=== PATIENT | male | born 1970 | race Caucasian/White ===

== ENCOUNTER 2016-08-11 14:19 | Emergency (ER) | payer OTHER ==
[~2016-08-11] VITALS: Ht 177.8 cm; Wt 65.8 kg
[~2016-08-11 14:19] MED LIST: LOSARTAN POTASS50 M1 PO; MOBIC15 MG PO; NAPROSYN500 M1 PO; PHENYTOIN SODI100 MG PO; TOPICORT60 G3 TOP
[2016-08-11 14:29] VITALS: BP 98/62
[2016-08-11] MEDS ORDERED: BACLOFEN10 M1 PO (15:08)
[2016-08-11] MEDS ORDERED: VICODIN 5-3001 EACH PO (15:08)
--- NOTE | 2016-08-11 15:10 | ED UPPER/LOWER EXTREMITY COMPL ---
History of Present Illness General Chief Complaint: Lower Extremity Problems Stated Complaint: LEFT LEG PAIN Source: patient, old records Exam Limitations: no limitations Vital Signs & Intake/Output Vital Signs & Intake/Output Vital Signs Date Time Temp Pulse Resp B/P Pulse O2 O2 Flow FiO2 Ox Delivery Rate 08/11 1429 98.8 108 20 98/62 96 Room Air Allergies Coded Allergies: aspirin (DIZZINESS 01/27/16) Uncoded Allergies: POLLEN (11/07/13) Reconcile Medications Baclofen 10 MG TABLET 1-2 TAB PO TID PRN muscle strain Hydrocodone/Acetaminophen (Vicodin 5-300 MG Tablet) 5 MG-300 MG TABLET 1 TAB PO Q4-6 PRN severe pain Losartan Potassium 50 MG TABLET 1 TAB PO DAILY HIGH BLOOD PRESSURE (Reported) Phenytoin Sodium Extended 100 MG CAPSULE 1 CAP PO DAILY SEIZURES (Reported) Phenytoin Sodium Extended 100 MG CAPSULE 2 CAP PO QPM SEIZURES (Reported) Triage Note: PT BIBA TO ED C/O LEFT LEG PAIN AND SWELING. STATES ABOUT 5 WEEKS AGO HE HAD AN INJURY TO LEFT LEG. PT HAS BEEN HAVING PHYSICAL THERAPY, PT STATES IT IS NOT GETTING ANY BETTER. LEFT LEFT SWELLING AND BRUISING NOTED. Triage Nurses Notes Reviewed? 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 Method of Injury: fall Modifying Factors: Improves With: immobilization, pain medication, rest. Worsens With: movement. Associated Symptoms: swelling, GCS 15 since, stiffness HPI: 1 month prior to admission patient fell from 3 foot ladder sustaining left leg injuries to the muscles by MRI [id number]. He complains of continued pain swelling and ecchymosis to left leg. He was prescribed naprosyn recently causing him to have frequent loose watery stool. He denies fever chills nausea vomiting diarrhea abdominal pain chest pain shortness breath headache injury. Past History Travel History Traveled to [place] past 21 day No Medical History Any Pertinent Medical History? 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 No Review of Systems Review of Systems Constitutional: Reports: no symptoms. EENTM: Reports: no symptoms. Respiratory: Reports: no symptoms. Cardiovascular: Reports: no symptoms. Gastrointestinal/Abdominal: Reports: no symptoms. Genitourinary: Reports: no symptoms. Musculoskeletal: Reports: see HPI, muscle pain, muscle stiffness. Skin: Reports: no symptoms. Neurological/Psychological: Reports: no symptoms. Hematologic/Endocrine: Reports: no symptoms. Immunological: Reports: no symptoms. All Other Systems: Reviewed and Negative Physical Exam Physical Exam General Appearance: well developed/nourished, alert, awake, anxious, moderate distress Head: atraumatic, normal appearance Eyes: Bilateral: normal appearance, PERRL, EOMI. Ears, Nose, Throat: normal pharynx, normal ENT inspection, hearing grossly normal Neck: normal inspection, supple, full range of motion, no midline tenderness Cardiovascular/Respiratory: normal breath sounds, normal peripheral pulses, regular rate/rhythm, no respiratory distress Peripheral Pulses: 4+ carotid (R), 4+ carotid (L), 2+ femoral (R), 2+ femoral (L) Back: normal inspection Shoulder Left: normal range of motion, normal inspection Shoulder Right: normal range of motion, normal inspection Elbow Left: normal range of motion, normal inspection Elbow Right: normal range of motion, normal inspection Hand Left: normal inspection, normal range of motion Hand Right: normal inspection, normal range of motion Upper Extremity Reflexes: 2+: bicep (R), bicep (L), tricep (R), tricep (L). Leg Left: tenderness, ecchymosis, evidence of injury, soft tissue tenderness, limited range of motion Leg Right: normal range of motion, normal inspection Hip Left: normal range of motion, normal inspection Hip Right: normal range of motion, normal inspection Knee Left: normal inspection, soft tissue tenderness, limited range of motion Knee Right: normal range of motion, normal inspection Foot Left: normal inspection, normal range of motion Foot Right: normal inspection, normal range of motion Lower Extremity Reflexes: 2+: knee (R), knee (L). Neurologic/Tendon: normal sensation, normal motor functions, normal tendon functions, no evidence tendon injury Skin: intact, normal color, warm/dry Lymphatic: no anterior cervical anna Progress Differential Diagnosis: compartment syndrome, contusion Plan of Care: analgesia muscle relaxant Departure Departure Time of Disposition: 1507 Disposition: HOME OR SELF CARE Condition: Stable Clinical Impression Primary Impression: Musculoskeletal pain of left lower extremity Referrals: KESHA ROSARIO (PCP/Family) Departure Forms: Customer Survey General Discharge Information Prescriptions: Current Visit Scripts Baclofen 1-2 TAB PO TID PRN muscle strain #30 TAB Hydrocodone/Acetaminophen (Vicodin 5-300 MG Tablet) 1 TAB PO Q4-6 PRN severe pain #30 TAB
== END 2016-08-11 15:25 ==
LOC: ERH 14:19
DX: M79.605 Pain in left leg (principal)

== ENCOUNTER 2016-08-19 14:16 | Inpatient (IN) | payer OTHER ==
[~2016-08-19] VITALS: Ht 177.8 cm; Wt 66.7 kg
[~2016-08-19 14:16] MED LIST changes: +BACLOFEN10 M1 PO; +VICODIN 5-3001 EACH PO
--- NOTE | 2016-08-19 15:23 | ED GENERAL ADULT ---
See Addendum History of Present Illness General Chief Complaint: Dyspnea (COPD, CHF, Other) Stated Complaint: SOB, DIFFICULTY BREATHING Source: patient, family Exam Limitations: poor historian, physical impairment Allergies Coded Allergies: aspirin (DIZZINESS 01/27/16) Uncoded Allergies: POLLEN (11/07/13) Reconcile Medications Baclofen 10 MG TABLET 1-2 TAB PO TID PRN muscle strain Hydrocodone/Acetaminophen (Vicodin 5-300 MG Tablet) 5 MG-300 MG TABLET 1 TAB PO Q4-6 PRN severe pain Losartan Potassium 50 MG TABLET 1 TAB PO DAILY HIGH BLOOD PRESSURE (Reported) Phenytoin Sodium Extended 100 MG CAPSULE 1 CAP PO DAILY SEIZURES (Reported) Phenytoin Sodium Extended 100 MG CAPSULE 2 CAP PO QPM SEIZURES (Reported) Triage Note: PT WAS EVALUATED 07/17 IN ER AFTER A FALL , HAD XRAYS, WAS TOLD HE HAD HEMATOMA BEHIND HIS KNEE, HAS US TO RULE OUT DVT. PTS MOTHER STATES THAT PT HAS BEEN FAILING WITH HIS HEALTH, UNABLE TO WALK WITHOUT BECOMING SOB, O2 SAT 100 % ON RA, STARTED LAST FRIDAY. COMPLAINS OF HEADACHE, PAIN FROM FOOT TO GROIN, SHOOTING, PT UNABLE TO SIT STILL IN CHAIR, PT WENT TO DR ACOSTA OFFICE AND WAS TOLD TO COME TO ER, BP 62/34 MANUAL AT THIS TIME. Triage Nurses Notes Reviewed? yes Onset: Abrupt Duration: week(s): Timing: recent history HPI: 46-year-old man who presents to the emergency department for difficulty breathing. Found to be significantly hypotensive. The patient has been followed by Dr. Dhaliwal for a traumatic injury to his left lower extremity, is been ongoing for months, he's had progressive swelling to the left lower extremity, and has severe pain. Fracture is been excluded. He also has a history of traumatic brain injury and a seizure disorder for which he takes Dilantin. Today he was seen in Dr. Dhaliwal's office and was complaining of difficulty breathing, and so he was referred to the emergency department. (APRIL MARION DO) Vital Signs & Intake/Output Vital Signs & Intake/Output Vital Signs Date Time Temp Pulse Resp B/P Pulse O2 O2 Flow FiO2 Ox Delivery Rate 08/19 2206 88 16 98/44 100 Room Air 08/19 2135 98.9 80 18 98/46 100 Room Air 08/19 2114 77 18 96/52 100 Room Air 08/19 2035 98.8 82 18 96/42 100 Room Air 08/19 202 100 Room Air 08/19 1950 98.9 78 18 112/58 100 Room Air 08/19 1813 97.0 85 16 98/42 100 Room Air 08/19 1655 90/48 08/19 1613 78 16 96/42 100 Room Air 08/19 1553 99 Room Air 08/19 1550 80 16 82/38 96 Room Air 08/19 1501 98.7 96 16 62/35 100 Room Air HPI: 08/19/16 6 pm (GEO GUERIN) Past History Travel History Traveled to [place] past 21 day No Medical History Any Pertinent Medical History? 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 No (APRIL MARION DO) Review of Systems Review of Systems Constitutional: Denies: fever. EENTM: Denies: visual changes. Respiratory: Reports: short of breath. Cardiovascular: Denies: chest pain. GI: Denies: abdominal pain. Genitourinary: Reports: no symptoms. Musculoskeletal: Reports: see HPI. Skin: Reports: see HPI. Neurological/Psychological: Reports: no symptoms. Hematologic/Endocrine: Reports: no symptoms. (APRIL MARION DO) Physical Exam Physical Exam General Appearance: alert, awake, anxious, moderate distress Head: atraumatic Eyes: Bilateral: normal appearance, PERRL, EOMI. Ears, Nose, Throat: normal pharynx, normal ENT inspection Neck: normal inspection, supple Respiratory: normal breath sounds, chest non-tender Cardiovascular: regular rate/rhythm Peripheral Pulses: 4+ radial (R), 4+ radial (L) (left dorsalis pedis pulse +) Gastrointestinal: soft, non-tender Rectal: heme negative stool Back: decreased range of motion Extremities: swelling, tenderness, left lower extremity Neurologic/Psych: no motor/sensory deficits, awake, alert, oriented x 3 Skin: rash Comments: Left lower extremity has good dorsalis pedis pulse, capillary refill is less than 2 seconds, it is however edematous, exquisitely tender, and mottled in appearance, this is been ongoing for weeks according to the patient. Core Measures ACS in differential dx? No CVA/TIA Diagnosis: No Severe Sepsis Present: No Septic Shock Present: No (APRIL MARION DO) Progress Differential Diagnoses I considered the following diagnoses in my evaluation of the patient: [ Symptomatic anemia, pulmonary embolism adverse drug reaction to Dilantin; including pancytopenia, toxic epidermal necrolysis] Initial ED EKG: NSR Prior EKG: unchanged (APRIL MARION DO) Plan of Care: Orders Procedure Date/time Status Regular Diet 08/20 B Active CBC WITHOUT DIFFERENTIAL 08/20 06 Active BASIC ELECTROLYTES PLUS BUN&CR 08/20 06 Active CBC WITHOUT DIFFERENTIAL 08/20 0000 Active BLOOD PRODUCT PICKUP 08/19 2231 Active Pathway - chart 08/19 2200 Active House Staff 08/19 2200 Active Patient Data 08/19 220 Active Vital Signs 08/19 2056 Active Turn and Reposition 08/19 2056 Active Teach/Educate 08/19 2056 Active Skin Integrity Protocol 08/19 2056 Active Skin/Pressure Ulcer Assess (Sk 08/19 2056 Active Precautions 08/19 2056 Active Pain Treatment and Response 08/19 2056 Active Nutritional Intake, Monitor 08/19 2056 Active Isolation 08/19 2056 Active Patient Care Conference 08/19 2056 Active Activity/Ambulation 08/19 2056 Active Patient Data 08/19 2034 Active Admit to inpatient 08/19 1954 Active Vital Signs 08/19 1954 Active Code Status 08/19 195 Active URINE DRUGS OF ABUSE 08/19 1939 Active URINALYSIS 08/19 1939 Active BLOOD PRODUCT PICKUP 08/19 1911 Active LEUKOCYTE POOR (PACKED CELLS) 08/19 1906 Active TYPE & SCREEN (NOT X-MATCH) 08/19 1834 Active BLOOD CULTURE 08/19 1626 Active PROTHROMBIN TIME 08/19 1621 Complete LACTIC ACID 08/19 1621 Complete COMPREHENSIVE METABOLIC PANEL 08/19 1621 Complete CBC WITHOUT DIFFERENTIAL 08/19 1621 Complete Intake & Output 08/19 1553 Active EKG 08/19 1417 Active VTE Mechanical Prophylaxis 08/19 UNK Active CIWA 08/19 UNK Active Current Medications Sig/Madie Start time Last Medication Dose Stop Time Status Admin Phenytoin 100 MG DAILY 08/20 1000 UNVr (Dilantin ER) Phenytoin 200 MG QPM 08/19 2315 UNVr (Dilantin ER) Acetaminophen 650 MG Q6P PRN 08/19 2200 AC (Tylenol) Acetaminophen 1,000 MG Q6P PRN 08/19 2200 AC (Ofirmev) Lorazepam 0 Q1P PRN 08/19 2199 AC (Ativan) Morphine Sulfate 2 MG Q6-PRN PRN 08/19 2199 AC (Morphine) Sodium Chloride 1,000 ML BOLUS ONE 08/19 194 CAN (Normal Saline 0.9%) 08/19 2043 Laboratory Tests 08/19/16 192: Lactic Acid Cancelled 08/19/16 1624: Anion Gap 8, Estimated GFR > 60, BUN/Creatinine Ratio 27.5 H, Glucose 98, Lactic Acid 1.2, Calcium 8.5, Total Bilirubin 1.0, AST 31, ALT 36, Alkaline Phosphatase 109, Total Protein 6.0 L, Albumin 3.1 L, Globulin 2.9, Albumin/ Globulin Ratio 1.1, PT 16.1 H, INR 1.54 H, CBC w Diff NO MAN DIFF REQ, RBC 1.75 L, MCV 98.3 H, MCH 32.2 H, RDW 16.0 H, MPV 8.6, Gran % 77.4 H, Lymphocytes % 16.1 L, Monocytes % 6.0, Eosinophils % 0.2, Basophils % 0.3, Absolute Granulocytes 3.1, Absolute Lymphocytes 0.6 L, Absolute Monocytes 0.2, Absolute Eosinophils 0, Absolute Basophils 0, PUBS MCHC 32.8 L Microbiology 08/19 1635 BLOOD: Blood Culture - RECD 08/19 1634 BLOOD: Blood Culture - RECD Comments: 08/19/2016 10:21:19 PM: I was not involved in this patient's care. Geo Mejia PA-C (GEO GUERIN) Departure Departure Disposition: STILL A PATIENT Condition: Stable Clinical Impression Primary Impression: Symptomatic anemia Referrals: KESHA ROSARIO (PCP/Family) Departure Forms: Customer Survey General Discharge Information Comments The patient was placed on a monitor he was treated with IV fluids. Blood was administered for the severe anemia. He was admitted to the ICU for further care. PATIENT: ARIELLE FINLEY PRESENT AGE: 46 PATIENT ACCOUNT NO: [id number] : 72 LOCATION: [facility] ORDERING PHYSICIAN: APRIL MARION DO SERVICE DATE: 08/19/16 EXAM TYPE: CAT - CTA CHEST-PULMONARY EMBOLISM EXAMINATION: CT ANGIOGRAM OF THE CHEST WITH AND WITHOUT CONTRAST (CT PULMONARY ANGIOGRAM FOR PE) CLINICAL INFORMATION: Shortness of breath COMPARISON: No pertinent prior studies are available for comparison. TECHNIQUE: Prior to contrast administration, noncontrast localization images were obtained. Subsequently, multidetector volumetric imaging was performed from the thoracic inlet to below the diaphragms following the administration of 94 mL Optiray 350 intravenous contrast. No contrast reaction reported Sagittal, coronal, and MIP oblique sagittal reformatted images were obtained on the CT workstation, uploaded to PACS, and reviewed. Total exam dose-length product 299.49 mGy-cm FINDINGS: QUALITY OF STUDY/CONTRAST BOLUS: Satisfactory. PULMONARY ARTERIES: No central or segmental pulmonary emboli. THORACIC AORTA: No aneurysm or dissection. LUNG: Subpleural blebs at lung apices. Emphysematous changes of lung. No infiltrate. No suspicious lung nodule interstitial changes. Central bronchial airways are open. PLEURA: No pleural effusion or pneumothorax. MEDIASTINUM: Normal heart size. No pericardial effusion. No hilar or mediastinal lymphadenopathy. No evidence of septal bowing or right heart strain. CHEST WALL/AXILLA: No axillary or internal mammary lymphadenopathy. OSSEOUS STRUCTURES: No acute or suspicious osseous abnormality. UPPER ABDOMEN: Unremarkable. No reflux of contrast into the hepatic veins to suggest elevated right heart pressures. IMPRESSION: No evidence of pulmonary embolism. No acute change of the chest. VTE: negative DICTATED BY: BOBBI ANDRES MD DATE/TIME DICTATED:08/19/161840 WEDGER AND GLUER:REGINO DATE/TIME TRANSCRIBED:08/19/161840 CONFIDENTIAL, DO NOT COPY WITHOUT APPROPRIATE AUTHORIZATION. <Electronically signed in Other Vendor System> SIGNED BY: BOBBI ANDRES MD 08/19/161847 Admission Note Spoke With: DAVE FRANCO MD Documentation of Exam: Documentation of any treatments & extenuating circumstances including Concerns Regarding Discharge (functional status, medication knowledge or non-compliance, living conditions, etc.) that warrant an admission rather than observation: [The patient needs admission for blood transfusion, IV fluids, consider vascular and hematology consultation] (APRIL MARION DO) Critical Care Note Critical Care Note Critical Care Time: 30-74 min (APRIL MARION DO)
[2016-08-19 16:35] LABS: ABSOLUTE BASOPHIL COUNT 0 /CUMM (0.0-0.2); ABSOLUTE EOSINOPHIL COUNT 0 /CUMM (0.0-0.7); ABSOLUTE GRANULOCYTE CT 3.1 /CUMM (1.4-6.5); ABSOLUTE LYMPH COUNT 0.6 /CUMM (1.2-3.4); ABSOLUTE MONOCYTE COUNT 0.2 /CUMM (0.10-0.60); MEAN PLATELET VOLUME 8.6 FL (7.4-10.4)
[2016-08-19 16:38] LABS: BASOPHIL % 0.3 % (0.0-2.0); EOSINOPHIL % 0.2 % (0-5); GRANULOCYTE % 77.4 % (42.2-75.2); MEAN CORPUSCULAR HGB 32.2 PG (27.0-31.0); MEAN CORPUSCULAR HGB CONC 32.8 G/DL (33.0-37.0); MEAN CORPUSCULAR VOLUME 98.3 FL (80.0-94.0); PLATELET COUNT 275 /CUMM (130-400); PT 16.1 SEC (9.4-12.5); RED BLOOD CELL CT 1.75 /CUMM (4.70-6.10)
[2016-08-19 16:52] LABS: HEMATOCRIT 17.2 % (42-52)
--- NOTE | 2016-08-19 18:32 | ULTRASOUND REPORT ---
EXAMINATION: US LOWER EXTREMITY VENOUS, LEFT CLINICAL INFORMATION: Edema. Pain. Discoloration. Swelling. Inflammation. COMPARISON: Ultrasound left lower extremity 07/17/2016 TECHNIQUE: Doppler spectral analysis and color flow Doppler imaging was performed of the left lower extremity. Compression and augmentation maneuvers were performed. FINDINGS: Exam limited by edema and leg tenderness. Lower extremity venous ultrasound demonstrates no evidence of DVT. The common femoral, femoral, popliteal and calf veins were well-identified and normal. They demonstrate normal compressibility and color fill-in. No popliteal cyst. Lymph node with normal ultrasound morphology in the right groin with short axis diameter 0.8 cm IMPRESSION: No evidence for a lower extremity deep vein thrombosis.
--- NOTE | 2016-08-19 18:48 | CT SCAN REPORT ---
EXAMINATION: CT ANGIOGRAM OF THE CHEST WITH AND WITHOUT CONTRAST (CT PULMONARY ANGIOGRAM FOR PE) CLINICAL INFORMATION: Shortness of breath COMPARISON: No pertinent prior studies are available for comparison. TECHNIQUE: Prior to contrast administration, noncontrast localization images were obtained. Subsequently, multidetector volumetric imaging was performed from the thoracic inlet to below the diaphragms following the administration of 94 mL Optiray 350 intravenous contrast. No contrast reaction reported Sagittal, coronal, and MIP oblique sagittal reformatted images were obtained on the CT workstation, uploaded to PACS, and reviewed. Total exam dose-length product 299.49 mGy-cm FINDINGS: QUALITY OF STUDY/CONTRAST BOLUS: Satisfactory. PULMONARY ARTERIES: No central or segmental pulmonary emboli. THORACIC AORTA: No aneurysm or dissection. LUNG: Subpleural blebs at lung apices. Emphysematous changes of lung. No infiltrate. No suspicious lung nodule interstitial changes. Central bronchial airways are open. PLEURA: No pleural effusion or pneumothorax. MEDIASTINUM: Normal heart size. No pericardial effusion. No hilar or mediastinal lymphadenopathy. No evidence of septal bowing or right heart strain. CHEST WALL/AXILLA: No axillary or internal mammary lymphadenopathy. OSSEOUS STRUCTURES: No acute or suspicious osseous abnormality. UPPER ABDOMEN: Unremarkable. No reflux of contrast into the hepatic veins to suggest elevated right heart pressures. IMPRESSION: No evidence of pulmonary embolism. No acute change of the chest. VTE: negative
--- NOTE | 2016-08-19 21:58 | History & Physical ---
ARTIS JAVED 08/19/16 1864: General Information and HPI MD Statement: I have seen and personally examined ARIELLE HUBBARD and documented this H&P. The patient is a 46 year old M who presented with a patient stated chief complaint of [sent in from the doctors office]. Source of Information: patient, family, EMS Exam Limitations: no limitations History of Present Illness: Mr. Hubbard is a 46-year-old male with significant past medical history of hypertension, traumatic brain injury, with resulting seizure disorder [on phenytoin - last seizure many years ago] presents to the hospital emergency department after he was sent in by Dr. Scanlon after being found hypotensive. The patient was being evaluated for left leg pain. He states that he fell off a ladder and his leg was caught in it. This happened 5-6 weeks ago per ED reports. Previous CT 07/17/16 showed skin thickening and edema in the soft tissues. He was also evalauted with a knee/tib/fib MRI which showed mild to moderate strain/contusion of the biceps femoris, gastrocnemius and peroneus longus. He states that his pain is at times very severe 10 out of 10 however at times is mild 2 out of 10. He also states that it is both relieved and exacerbated by walking. It is tender to touch. He denied any other complaints aside from leg pain including MARTEL, vision/hearing problems, n/v, chest pain, dyspnea, palpitations, n/v, abdominal pain, GI upset, bloody/dark stools, or hemoptysis. In the ED he was found to be hypotensive, 62/35 with the remainder of his vitals stable. He was also found to be anemic with a hemoglobin of 5.6 and hematocrit 17.2. CTA ruled out PE or any acute pathology and lower extremity Doppler ruled out any venous thrombus. He does have significant past history of tobacco abuse, 2 packs per day and alcohol abuse, sixpack of beer every 2-3 days. He works as a [employer]. He denies any known bleeding diathesis or family history of bleeding. Allergies/Medications Allergies: Coded Allergies: aspirin (DIZZINESS 01/27/16) Uncoded Allergies: POLLEN (11/07/13) Home Med list Baclofen 10 MG TABLET 1-2 TAB PO TID PRN muscle strain Hydrocodone/Acetaminophen (Vicodin 5-300 MG Tablet) 5 MG-300 MG TABLET 1 TAB PO Q4-6 PRN severe pain Losartan Potassium 50 MG TABLET 1 TAB PO DAILY HIGH BLOOD PRESSURE (Reported) Phenytoin Sodium Extended 100 MG CAPSULE 1 CAP PO DAILY SEIZURES (Reported) Phenytoin Sodium Extended 100 MG CAPSULE 2 CAP PO QPM SEIZURES (Reported) Past History Travel History Traveled to [place] past 21 day No Medical History Neurological: seizure, TBI EENT: NONE Cardiovascular: hypertension Respiratory: NONE Gastrointestinal: NONE Hepatic: NONE Renal: NONE Musculoskeletal: NONE Psychiatric: NONE Endocrine: NONE Blood Disorders: NONE Cancer(s): NONE 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 Ambulation: cane (recently (to help w pain)) IADLs Independent: shopping, housework, finances, food prep, telephone, transportation , medication admin. Review of Systems Review of Systems Constitutional: Reports: see HPI. Exam & Diagnostic Data Last 24 Hrs of Vital Signs/I&O Vital Signs Date Time Temp Pulse Resp B/P Pulse O2 O2 Flow FiO2 Ox Delivery Rate 08/19 2207 88 16 98/44 100 Room Air 08/19 2136 98.9 80 18 98/46 100 Room Air 08/19 2115 77 18 96/52 100 Room Air 08/19 2036 98.8 82 18 96/42 100 Room Air 08/19 2026 100 Room Air 08/19 1950 98.9 78 18 112/58 100 Room Air 08/19 1813 97.0 85 16 98/42 100 Room Air 08/19 1655 90/48 08/19 1613 78 16 96/42 100 Room Air 08/19 1553 99 Room Air 08/19 1550 80 16 82/38 96 Room Air 08/19 1501 98.7 96 16 62/35 100 Room Air Intake & Output 08/19 1600 08/19 0800 08/19 0000 Intake Total Output Total Balance Patient 69.853 kg Weight Physical Exam General Appearance Alert, Oriented X3, Cooperative, No Acute Distress HEENT Atraumatic, PERRLA, EOMI Neck Supple, No JVD Cardiovascular Regular Rate, Normal S1, Normal S2, No Murmurs Lungs Clear to Auscultation, Normal Air Movement Abdomen Normal Bowel Sounds, Soft, No Tenderness Extremities No Cyanosis, significant bruising, warmth and tenderness in the left leg from thigh to foot. Much more tense than the right side, DP/TP pulse not appreciated in the foot however patient had severe tenderness to light touch. They were present on bedside doppler exam, sensation intact bilaterally Body Front and Back (Adult) 1) tender/warm/swollen Diagnostic Data EKG Results NSR @75 w LVH Other Results SERVICE DATE: 08/19/16 EXAM TYPE: US - US-DUPLEX VENOUS EXTREM UNI EXAMINATION: US LOWER EXTREMITY VENOUS, LEFT CLINICAL INFORMATION: Edema. Pain. Discoloration. Swelling. Inflammation. COMPARISON: Ultrasound left lower extremity 07/17/2016 TECHNIQUE: Doppler spectral analysis and color flow Doppler imaging was performed of the left lower extremity. Compression and augmentation maneuvers were performed. FINDINGS: Exam limited by edema and leg tenderness. Lower extremity venous ultrasound demonstrates no evidence of DVT. The common femoral, femoral, popliteal and calf veins were well-identified and normal. They demonstrate normal compressibility and color fill-in. No popliteal cyst. Lymph node with normal ultrasound morphology in the right groin with short axis diameter 0.8 cm IMPRESSION: No evidence for a lower extremity deep vein thrombosis. SERVICE DATE: 08/19/16 EXAM TYPE: CAT - CTA CHEST-PULMONARY EMBOLISM EXAMINATION: CT ANGIOGRAM OF THE CHEST WITH AND WITHOUT CONTRAST (CT PULMONARY ANGIOGRAM FOR PE) CLINICAL INFORMATION: Shortness of breath COMPARISON: No pertinent prior studies are available for comparison. TECHNIQUE: Prior to contrast administration, noncontrast localization images were obtained. Subsequently, multidetector volumetric imaging was performed from the thoracic inlet to below the diaphragms following the administration of 94 mL Optiray 350 intravenous contrast. No contrast reaction reported Sagittal, coronal, and MIP oblique sagittal reformatted images were obtained on the CT workstation, uploaded to PACS, and reviewed. Total exam dose-length product 299.49 mGy-cm FINDINGS: QUALITY OF STUDY/CONTRAST BOLUS: Satisfactory. PULMONARY ARTERIES: No central or segmental pulmonary emboli. THORACIC AORTA: No aneurysm or dissection. LUNG: Subpleural blebs at lung apices. Emphysematous changes of lung. No infiltrate. No suspicious lung nodule interstitial changes. Central bronchial airways are open. PLEURA: No pleural effusion or pneumothorax. MEDIASTINUM: Normal heart size. No pericardial effusion. No hilar or mediastinal lymphadenopathy. No evidence of septal bowing or right heart strain. CHEST WALL/AXILLA: No axillary or internal mammary lymphadenopathy. OSSEOUS STRUCTURES: No acute or suspicious osseous abnormality. UPPER ABDOMEN: Unremarkable. No reflux of contrast into the hepatic veins to suggest elevated right heart pressures. IMPRESSION: No evidence of pulmonary embolism. No acute change of the chest. VTE: negative Assessment/Plan Assessment: Mr. Hubbard is a 46-year-old male with significant past medical history of hypertension, traumatic brain injury, with resulting seizure disorder [on phenytoin - last seizure many years ago] presents to the hospital emergency department after he was sent in by Dr. Scanlon after being found hypotensive. In the ED he was found to be hypotensive, 62/35 with the remainder of his vitals stable. His BP responded to fluid resus but he was also found to be anemic with a hemoglobin of 5.6 and hematocrit 17.2. He is currently recieving 1 out of 2 PRBC. Problem List/Assessment and Plan Acute blood loss anemia * Most likely traumatic in origin (leg caught in ladder), although this did happen over a month ago which also leads us to consider other sources strongly * He was guiac negative in the emergency department, with no reports or complaints of hematemesis or hemoptysis, abdominal pain, bright red blood per rectum, melena or hematochezia. * I dont think he needs an anemia work up for now as we do have a more plausible etiology * We will transfuse 2 units of PRBC and recheck CBC upon completion around 12a * He didn't receive a dose of IV contrast for a CT, I do believe we would get an IV contrast CT of his leg to evaluate for bleeding. I did speak to radiology and CT, and was instructed that we could not repeat a CT w contrast within 24 hours as this does put him at an increased risk of contrast-induced nephropathy. * We will obtain an IV contrast CT of the leg tomorrow * We will also get ortho on board and surgery depending on his pulses for possible emergent fasciotomy if he develops compartment syndrome. * we will assess pulses q1-2 hours w doppler * avoid NSAIDs or antiplatelet meds including sc heparin/lovenox for now - ALPS on the right leg, and reconsider pharm dvt ppx in the am post CT scan Hypotension * Currently responding well to fluid resuscitation with normal saline. He will also receive another unit of blood which should help maintain his blood pressure. * If he does drop, we will give 1-2 more boluses and consider a central line/ pressor resuscititation * We will hold his BP meds for now Seizure d/o 2/2 TBI * Continue dilantin 100 in the am and 200mg in the pm FULL CODE regular diet tylenol PO and IV with morhine for pain control holding pharm dvt ppx As Ranked By This Provider Problem List: 1. Acute blood loss anemia 2. Hypotension 3. Seizure Core Measures/Miscellaneous Acute Coronary Syndrome ACS Diagnosis: No Cerebrovascular Accident CVA/TIA Diagnosis: No Congestive Heart Failure CHF Diagnosis: No Venous Thromboembolism VTE Risk Factors: Age > 40, Immobility, paresis VTE Prophylaxis Ordered Inpt: Mechanical (ALPS/TEDS) No Mech VTE prophylaxis d/t: LE Injury, current No VTE Pharm Prophylaxis d/t: Active bleeding (questionable) VTE Diagnosis: No VTE Type: NONE VTE Confirmed by (Test): CT CHEST ANGIOGRAM (and LE doppler) Severe Sepsis Severe Sepsis Present: No Septic Shock Septic Shock Present: No Miscellaneous Documentation Attending Case Discussed With: DAVE FRANCO MD Primary Care Physician: KESHA ROSARIO Patient sees these Special[facility] Level of Patient Care: Critical Care (CRI) [facility] 0137: Attending MD Review Statement Attending Statement Attending Statement: examined this patient, discuss w/resident/PA/CIRCUIT BOARD INSPECTOR, agreed w/resident/PA/CIRCUIT BOARD INSPECTOR, discussed with family Attending Assessment/Plan: 46 yo M smoker, with h/o TBI with resultant seizure d/o (last seizure 4 months ago), HTN on losartan, is sent in from Dr. Rider's office for evaluation of hypotension and dyspnea. BP on ER arrival was 62/35. Patient sustained injury to left lower extremity s/p fall off the ladder around early Jun 2016. This resulted in swelling and pain, that limited his mobility. He was seen multiple times in [place] ER, DVT was ruled out, CT LE w/o contrast showed skin thickening and edema, and MRI showed no meniscal tear but moderate muscle strains/ contusions. He was initiated on Vicodin and baclofen, along with physical therapy but he had no relief. The swelling gradually got worse, now up until the groin with diffuse ecchymotic patches and pain. He followed up at Dr. Rider's office, who does not think the patient has compartment syndrome or necrotizing fascitis. Patient's mother reports that she stopped the Vicodin 3 days ago as patient was having difficulty breathing. Patient reports dry cough with rhinorrhea, poor appetite and PO intake. Denies chest pain, palpitations, headache or lightheadedness. He has been consuming alcohol more often than before, denies use in past 3 days. Vitals stable except for hypotension, no tachypnea, sats 100% RA. Exam: AAO, has episodes of rage. Pallor+. Chest b/l clear, Heart S1S2 regular, Abd soft, NT. LLE: ecchymotic patches with diffuse pitting edema extending from foot to left groin, warm and tender. Pulses feeble, but present on doppler exam. Labs: 13.4/38.7 (Jul 17) --> 10.4/30.5 (Jul 30) --> 5.6/17.2, WBC 4.0, macrocytosis, INR 1.54, BUN 22, lactic acid 1.2, CK 142, LE dopplers neg, CTA no PE. EKG: SR, LVH, Qtc 461. Rectal exam: guaiac neg. 1. Hypotension likely 2/2 hypovolemia. BP improved with IV fluids. Holding Losartan. Continue maintenance fluids. 2. Acute blood loss and symptomatic anemia s/p trauma to LLE with possible resultant underlying hematoma. Will repeat CT lower extremity with IV contrast to assess if there is active bleeding, however this cannot be done overnight, as patient received IV contrast for CTA. Would check iron studies, TSH, B12 and folic acid. Guaiac all stools. Transfuse to keep Hb > 7.0. No h/o BRBPR, melena, hematemesis or hematuria. Will obtain Ortho and Surgery consult. Patient has been following with Dr. Rider who did not think patient has underlying compartment syndrome or nec fasc. Continue vascular checks. Pain management with tylenol and morphine. 3. H/o TBI and seizure. Ct. Dilantin. 4. H/o alcohol abuse. Monitor CIWA. Smoking cessation counseling, nicotine patch. DVT ppx Alps. Full code. TTS > 45 mins
--- NOTE | 2016-08-19 22:53 | Admission Certification ---
Admission Certification Certification Statement - As attending physician, I certify that at the time of - admission, based on clinical presentation, severity of - symptoms, need for further diagnostic testing and - therapeutic interventions, and risk of adverse outcomes - without in-hospital treatment, in my clinical assessment, - this patient requires an acute hospital stay for a minimum - of two nights or longer. I have also considered psychsocial - factors such as support system, advanced age, financial - issues, cognitive issues, and failed out-patient treatments, - past re-admission history, safety of patient, and lack of - compliance as applicable. Specific rationale supporting this admission is: Hypotension likely hypovolemic. Acute blood loss anemia.
[2016-08-19 23:16] VITALS: BP 94/44
[2016-08-20] VITALS (11 sets, daily range): BP systolic 97–130; BP diastolic 52–76
[2016-08-20 01:52] LABS: ABSOLUTE BASOPHIL COUNT 0.1 /CUMM (0.0-0.2); ABSOLUTE EOSINOPHIL COUNT 0.1 /CUMM (0.0-0.7); ABSOLUTE GRANULOCYTE CT 1.7 /CUMM (1.4-6.5); ABSOLUTE LYMPH COUNT 0.7 /CUMM (1.2-3.4); ABSOLUTE MONOCYTE COUNT 0.2 /CUMM (0.10-0.60); BASOPHIL % 4.2 % (0.0-2.0); EOSINOPHIL % 2.4 % (0-5); GRANULOCYTE % 62.1 % (42.2-75.2); MEAN CORPUSCULAR HGB 31.1 PG (27.0-31.0); MEAN CORPUSCULAR HGB CONC 33.7 G/DL (33.0-37.0); MEAN PLATELET VOLUME 8.1 FL (7.4-10.4); PLATELET COUNT 234 /CUMM (130-400); RBC DISTRIBUTION WIDTH 17.6 % (11.5-14.5); WHITE BLOOD CELL COUNT 2.7 /CUMM (4.8-10.8)
[2016-08-20 02:02] LABS: HEMATOCRIT 23.4 % (42-52); MEAN CORPUSCULAR VOLUME 92.3 FL (80.0-94.0); RED BLOOD CELL CT 2.53 /CUMM (4.70-6.10)
[2016-08-20 05:55] LABS: ABSOLUTE BASOPHIL COUNT 0 /CUMM (0.0-0.2); ABSOLUTE EOSINOPHIL COUNT 0.1 /CUMM (0.0-0.7); ABSOLUTE GRANULOCYTE CT 1.4 /CUMM (1.4-6.5); ABSOLUTE LYMPH COUNT 0.6 /CUMM (1.2-3.4); ABSOLUTE MONOCYTE COUNT 0.1 /CUMM (0.10-0.60); BASOPHIL % 0.3 % (0.0-2.0); EOSINOPHIL % 3.3 % (0-5); GRANULOCYTE % 63.5 % (42.2-75.2); HEMATOCRIT 22.5 % (42-52); MEAN CORPUSCULAR HGB 30.8 PG (27.0-31.0); MEAN CORPUSCULAR VOLUME 93.3 FL (80.0-94.0); MEAN PLATELET VOLUME 8.3 FL (7.4-10.4); PLATELET COUNT 201 /CUMM (130-400); RBC DISTRIBUTION WIDTH 18.2 % (11.5-14.5); RED BLOOD CELL CT 2.41 /CUMM (4.70-6.10); WHITE BLOOD CELL COUNT 2.2 /CUMM (4.8-10.8)
--- NOTE | 2016-08-20 08:58 | Cons- CRCU ---
[facility] 08/20/16 0857: General Information and HPI Consulting Request Date of Consult: 08/20/16 Reason for Consult: Hematoma and anemia Source of Information: patient Exam Limitations: no limitations History of Present Illness: 46/M with PMH of HTN, hx of traumatic brain injury with resulting seizure disorder [on phenytoin - last seizure many years ago] presents to ED after he was sent in by Dr. Scanlon after being found hypotensive. The patient was being evaluated for left leg pain. He states that he fell off a ladder and his leg was caught in it. This happened 5-6 weeks ago per ED reports. Previous CT 07/17/16 showed skin thickening and edema in the soft tissues. He was also evalauted with a knee/tib/fib MRI which showed mild to moderate strain/contusion of the biceps femoris, gastrocnemius and peroneus longus. His pain is wax and wean between 10/10 and 2/10. Pain. Worse with walking. He denies any joints pain, swelling or erythema. He denies skin rash or any history of rheumatic disease. Denies any other muscular pain. In the ED he was found to be hypotensive, 62/35 with the remainder of his vitals stable. He was also found to be anemic with a hemoglobin of 5.6 and hematocrit 17.2. CTA ruled out PE or any acute pathology and lower extremity Doppler ruled out any venous thrombus. Per the ED staff, his compartment pressures were measured the orthopedic surgeon's office and the patient does not have compartment syndrome. He does have significant past history of tobacco abuse, 2PPD and alcohol abuse, sixpack of beer every 2-3 days. He works as a [employer]. He denies any known bleeding diathesis or family history of bleeding. Allergies/Medications Allergies: Coded Allergies: aspirin (DIZZINESS 01/27/16) Uncoded Allergies: POLLEN (11/07/13) Home Med List: Baclofen 10 MG TABLET 1-2 TAB PO TID PRN muscle strain Hydrocodone/Acetaminophen (Vicodin 5-300 MG Tablet) 5 MG-300 MG TABLET 1 TAB PO Q4-6 PRN severe pain Losartan Potassium 50 MG TABLET 1 TAB PO DAILY HIGH BLOOD PRESSURE (Reported) Phenytoin Sodium Extended 100 MG CAPSULE 1 CAP PO DAILY SEIZURES (Reported) Phenytoin Sodium Extended 100 MG CAPSULE 2 CAP PO QPM SEIZURES (Reported) Review of Systems Review of Systems Constitutional: Reports: see HPI. Denies: chills, diaphoresis, fever, malaise. EENTM: Denies: blurred vision, double vision, visual changes, ear discharge, ear pain, hearing changes. Cardiovascular: Denies: chest pain, orthopena, palpitations, peripheral edema. Respiratory: Denies: cough, short of breath, wheezing. GI: Denies: abdominal pain, constipation, diarrhea, nausea, bloody stool, changes in stool, vomiting. Genitourinary: Denies: dysuria, frequency, hematuria. Skin: Reports: see HPI. 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 Home Smoking Status: Current Everyday Smoker ETOH Use: occasional use Illicit Drug Use: denies illicit drug use Functional Ability ADLs Independent: dressing, eating, toileting, bathing. Ambulation: cane (recently (to help w pain)) IADLs Independent: shopping, housework, finances, food prep, telephone, transportation , medication admin. Exam & Diagnostic Data Last 24 Hrs of Vital Signs/I&O Vital Signs Date Time Temp Pulse Resp B/P Pulse O2 O2 Flow FiO2 Ox Delivery Rate 08/20 0800 75 18 97/56 08/20 0800 100 Room Air 08/20 0600 64 18 106/55 08/20 0400 82 14 105/54 08/20 0400 98 Room Air Room Air 08/20 0200 69 17 101/52 08/20 0000 98.4 78 21 108/54 08/20 0000 100 Room Air Room Air 08/196 99.3 85 20 94/44 08/196 99.3 85 20 94/44 99 Room Air 08/197 88 16 98/44 100 Room Air 08/19 2135 98.9 80 18 98/46 100 Room Air 08/19 2114 77 18 96/52 100 Room Air 08/19 2035 98.8 82 18 96/42 100 Room Air 08/19 2025 100 Room Air 08/19 1950 98.9 78 18 112/58 100 Room Air 08/19 1813 97.0 85 16 98/42 100 Room Air 08/19 1655 90/48 08/19 1613 78 16 96/42 100 Room Air 08/19 1553 99 Room Air 08/19 1550 80 16 82/38 96 Room Air 08/19 1501 98.7 96 16 62/35 100 Room Air Intake & Output 08/20 1600 08/20 0800 08/20 0000 Intake Total 757 1000 Output Total 400 Balance 357 1000 Intake, Blood 350 Product Intake, IV 407 1000 Number 0 Bowel Movements Output, Urine 400 Patient 67.132 kg Weight Physical Exam General Appearance: well developed/nourished, no apparent distress, alert, awake , comfortable Head: atraumatic, normal appearance Eyes: Bilateral: normal appearance, PERRL, EOMI. Respiratory: normal breath sounds, chest non-tender, no respiratory distress, quiet respiration, lungs clear Cardiovascular: regular rate/rhythm Gastrointestinal: normal bowel sounds, soft, non-tender Extremities: hematoma over the left thigh posteriorly Last 48 Hrs of Labs/Bridger: Laboratory Tests 08/20/16 1325: CBC w Diff Pending, WBC Pending, RBC Pending, Hgb Pending, Hct Pending, MCV Pending, MCH Pending, RDW Pending, Plt Count Pending, MPV Pending, PUBS MCHC Pending 08/20/16 0627: Anion Gap 5, Estimated GFR > 60, BUN/Creatinine Ratio 22.9, Iron 120, TIBC 213 L, Ferritin 55.5, Vitamin B12 557, Folate 2.4 L, TSH 1.490, CBC w Diff NO MAN DIFF REQ, RBC 2.41 L, MCV 93.3, MCH 30.8, RDW 18.2 H, MPV 8.3, Gran % 63.5, Lymphocytes % 26.2, Monocytes % 6.7, Eosinophils % 3.3, Basophils % 0.3, Absolute Granulocytes 1.4, Absolute Lymphocytes 0.6 L, Absolute Monocytes 0.1 L, Absolute Eosinophils 0.1, Absolute Basophils 0, PUBS MCHC 33.0 08/20/16 0133: CBC w Diff MAN DIFF ORDERED, RBC 2.53 L, MCV 92.3, MCH 31.1 H, RDW 17.6 H, MPV 8.1, Gran % 62.1, Lymphocytes % 25.4, Monocytes % 5.9, Eosinophils % 2.4, Basophils % 4.2 H, Absolute Granulocytes 1.7, Segmented Neutrophils 69, Absolute Lymphocytes 0.7 L, Lymphocytes 21, Monocytes 5, Absolute Monocytes 0.2 , Eosinophils 5, Absolute Eosinophils 0.1, Absolute Basophils 0.1, Nucleated RBCs 2 H, Platelet Estimate ADEQUATE, Polychromasia 1+, Poikilocytosis 1+, Ovalocytes 1+, [place] Cells FEW, Elliptocytes FEW, Schistocytes RARE, PUBS MCHC 33.7, Fld Total RBCs Counted 100 08/19/16 193: Urine Color Cancelled, Urine Clarity Cancelled, Urine pH Cancelled, Ur Specific [place] Cancelled, Urine Protein Cancelled, Urine Ketones Cancelled, Urine Nitrite Cancelled, Urine Bilirubin Cancelled, Urine Urobilinogen Cancelled, Ur Leukocyte Esterase Cancelled, Ur Microscopic Cancelled, Urine Hemoglobin Cancelled, Urine Glucose Cancelled 08/19/161920: Lactic Acid Cancelled 08/19/16 1624: Anion Gap 8, Estimated GFR > 60, BUN/Creatinine Ratio 27.5 H, Glucose 98, Lactic Acid 1.2, Calcium 8.5, Total Bilirubin 1.0, AST 31, ALT 36, Alkaline Phosphatase 109, Creatine Kinase 142, Total Protein 6.0 L, Albumin 3.1 L, Globulin 2.9, Albumin/Globulin Ratio 1.1, PT 16.1 H, INR 1.54 H, CBC w Diff NO MAN DIFF REQ, RBC 1.75 L, MCV 98.3 H, MCH 32.2 H, RDW 16.0 H, MPV 8.6, Gran % 77.4 H, Lymphocytes % 16.1 L, Monocytes % 6.0, Eosinophils % 0.2, Basophils % 0.3, Absolute Granulocytes 3.1, Absolute Lymphocytes 0.6 L, Absolute Monocytes 0.2, Absolute Eosinophils 0, Absolute Basophils 0, PUBS MCHC 32.8 L, Phenytoin 7.9 L Assessment/Plan Impression/Plan: 46/M with PMH of HTN, traumatic brain injury, with resulting seizure disorder [ on phenytoin - last seizure many years ago] presents to the hospital emergency department after he was sent in by Dr. Scanlon after being found hypotensive. In the ED he was found to be hypotensive, 62/35 with the remainder of his vitals stable. His BP responded to fluid resus but he was also found to be anemic with a hemoglobin of 5.6 and hematocrit 17.2. He received one PRBC. Problem List/Assessment and Plan Acute blood loss anemia His anemia most likely traumatic in origin, part of it can be secondary to alcohol abuse. He was guiac negative in the emergency department, with no reports or complaints of hematemesis or hemoptysis, abdominal pain, bright red blood per rectum, melena or hematochezia. He received 2 units of PRBC after which his hemoglobin went up to 7.9 then dropped 7.4. Today or through was consulted and they recommended calling vascular surgery. * We will recheck CBC now * We will transfuse 1 unit of RBCs * We will consult vascular * We will try to avoid nonsteroid * Dependent on his CBC we may repeat CT scan of the thigh Hypotension He responded well to fluid resuscitation with normal saline. * If he does drop, we will give 1-2 more boluses and consider a central line/ pressor resuscititation * We will hold his BP meds for now Seizure d/o 2/2 TBI * Continue dilantin 100 in the am and 200mg in the pm FULL CODE regular diet tylenol PO and IV with morhine for pain control holding pharm dvt ppx Consult Acknowledgment - Thank you for your consult request. [facility],Meaghan [facility]IER 08/20/16 1239: General Information and HPI Consulting Request Date of Consult: 08/20/16 Requested By: Dr. Isaac Assessment/Plan Other Findings/Comments: I have personally seen and examined the patient and agree with the assessment as above. I discussed the plan of care with the housestaff in detail. The patient is a 46-year-old male with a history of traumatic brain injury, seizure disorder , and hypertension. The patient was admitted last night after being sent in to the ED for evaluation by orthopedic surgery. The patient fell in early June 2016 which resulted in left lower extremity swelling and pain which limited his mobility. The patient was seen multiple times by various physicians and has had multiple investigative studies for the etiology of the patient's swelling and pain. Because he was feeling lightheaded he was sent to the emergency department where he was found to have severe anemia below his baseline, in association with hypotension. There was no report of chest pain, palpitations, headache or lightheadedness. There was no report of melena, hematochezia or hematemesis. The patient also reported he has been consuming alcohol on a regular basis but denies any withdrawal symptoms. There was no evidence of rhabdomyolysis or compartment syndrome. The patient was volume resuscitated and transfused. He was placed in the critical care unit for close monitoring. The patient is currently being monitored and transfused as needed. We are monitoring him on the CIWA protocol. We are monitoring for bleeding. We're continuing with pain management as necessary. I have discussed the case with orthopedic surgery (Dr. Rider) in detail. At this point, we will contact vascular surgery for further recommendations. Consult Acknowledgment - Thank you for your consult request.
--- NOTE | 2016-08-20 12:52 | PN- Orthopedic ---
Subjective Subjective: Patient seen today. He is resting comfortably in the ICU. He has no complaints of leg pain. He says he feels "100%" better. This is a complete turnaround from how he was in the office 24 hours ago when he was in severe pain and unable to bear weight on the leg. He has no complaints of shortness of breath today either. Objective Vital Signs and I&Os Vital Signs Date Time Temp Pulse Resp B/P Pulse O2 O2 Flow FiO2 Ox Delivery Rate 08/20 0800 75 18 97/56 08/20 0800 100 Room Air 08/20 0600 64 18 106/55 08/20 0400 82 14 105/54 08/20 0400 98 Room Air Room Air 08/20 0200 69 17 101/52 08/20 0000 98.4 78 21 108/54 08/20 0000 100 Room Air Room Air 08/19 2316 99.3 85 20 94/44 08/19 2316 99.3 85 20 94/44 99 Room Air 08/19 2207 88 16 98/44 100 Room Air 08/19 2136 98.9 80 18 98/46 100 Room Air 08/19 2115 77 18 96/52 100 Room Air 08/19 2036 98.8 82 18 96/42 100 Room Air 08/19 2026 100 Room Air 08/19 1950 98.9 78 18 112/58 100 Room Air 08/19 1813 97.0 85 16 98/42 100 Room Air 08/19 1655 90/48 08/19 1613 78 16 96/42 100 Room Air 08/19 1553 99 Room Air 08/19 1550 80 16 82/38 96 Room Air 08/19 1501 98.7 96 16 62/35 100 Room Air Intake & Output 08/20 1600 08/20 0800 08/20 0000 08/19 1600 08/19 0800 08/19 0000 Intake Total 757 1000 Output Total 400 Balance 357 1000 Intake, Blood 350 Product Intake, IV 407 1000 Number 0 Bowel Movements Output, Urine 400 Patient 148 lb 154 lb Weight On physical exam the patient's awake and alert. Examination the left lower chamois reveals no sign of skin swelling. He still has evidence of significant ecchymosis of the right thigh and right leg. With the 5 compartments in the leg compartments are soft. They are not tense. There is no erythema. Range of motion knee is mildly painful. Range of motion the ankle is nonpainful. Passive range of motion of the extensor hallucis longus is nonpainful. He is sensation light touch on the plantar aspect of his foot. He has a palpable dorsalis pedis and posterior tibialis pulse. There are no signs of compartment syndrome. Assessment/Plan Assessment/Plan 46-year-old male with chronic leg pain and swelling for several weeks now status post a fall off of a ladder. No immediate concern for compartment syndrome. The only other thing to consider from a neurovascular standpoint is a vascular surgery consultation to make sure there is not a small intimal tear in one of the branches of the arteries which is causing some bleeding into the thigh. There has been a drop in hemoglobin over the past couple weeks and this should be evaluated. Continued temp monitor labs and ICU care. Patient will be transfused as per ICU attending. We will reevaluate again tomorrow.
--- NOTE | 2016-08-20 14:19 | Cons- Vascular Surgery ---
General Information and HPI Consulting Request Date of Consult: 08/20/16 Requested By: [facility],DAVE History of Present Illness: 46-year-old man who about a month ago fell from a ladder and injured his left leg as a result. He's been having ecchymosis and and since then. He presented to the hospital cause of continuing left leg discomfort. He was found to be anemic with hemoglobin of 5.6 on admission. Orthopedic surgery was consulted to rule out compartment syndrome as of swelling of both left thigh and left leg. Compartment syndrome was ruled out. Vascular surgery was consulted for evaluation of vascular injury as a result of his trauma and month ago. Allergies/Medications Allergies: Coded Allergies: aspirin (DIZZINESS 01/27/16) Uncoded Allergies: POLLEN (11/07/13) Home Med List: Baclofen 10 MG TABLET 1-2 TAB PO TID PRN muscle strain Hydrocodone/Acetaminophen (Vicodin 5-300 MG Tablet) 5 MG-300 MG TABLET 1 TAB PO Q4-6 PRN severe pain Losartan Potassium 50 MG TABLET 1 TAB PO DAILY HIGH BLOOD PRESSURE (Reported) Phenytoin Sodium Extended 100 MG CAPSULE 1 CAP PO DAILY SEIZURES (Reported) Phenytoin Sodium Extended 100 MG CAPSULE 2 CAP PO QPM SEIZURES (Reported) Past History Medical History Neurological: seizure, TBI EENT: NONE Cardiovascular: hypertension Respiratory: NONE Gastrointestinal: NONE Hepatic: NONE Renal: NONE Musculoskeletal: NONE Psychiatric: NONE Endocrine: NONE Blood Disorders: NONE Cancer(s): NONE 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 Home Smoking Status: Current Everyday Smoker ETOH Use: occasional use Illicit Drug Use: denies illicit drug use Functional Ability ADLs Independent: dressing, eating, toileting, bathing. Ambulation: cane (recently (to help w pain)) IADLs Independent: shopping, housework, finances, food prep, telephone, transportation , medication admin. Review of Systems Review of Systems: She denies headache, dizziness, cough, palpitation, diarrhea or constipation Exam & Diagnostic Data Vital Signs and I&O Vital Signs Date Time Temp Pulse Resp B/P Pulse O2 O2 Flow FiO2 Ox Delivery Rate 08/20 0800 75 18 97/56 08/20 0800 100 Room Air 08/20 0600 64 18 106/55 08/20 0400 82 14 105/54 08/20 0400 98 Room Air Room Air 08/20 0200 69 17 101/52 08/20 0000 98.4 78 21 108/54 08/20 0000 100 Room Air Room Air 08/19 2316 99.3 85 20 94/44 08/19 2316 99.3 85 20 94/44 99 Room Air 08/19 2207 88 16 98/44 100 Room Air 08/19 2136 98.9 80 18 98/46 100 Room Air 08/19 2115 77 18 96/52 100 Room Air 08/19 2036 98.8 82 18 96/42 100 Room Air 08/19 2025 100 Room Air 08/19 1950 98.9 78 18 112/58 100 Room Air 08/19 1813 97.0 85 16 98/42 100 Room Air 08/19 1655 90/48 08/19 1613 78 16 96/42 100 Room Air 08/19 1553 99 Room Air 08/19 1550 80 16 82/38 96 Room Air 08/19 1501 98.7 96 16 62/35 100 Room Air Intake & Output 08/20 1600 08/20 0800 08/20 0000 08/19 1600 08/19 0800 08/19 0000 Intake Total 757 1000 Output Total 400 Balance 357 1000 Intake, Blood 350 Product Intake, IV 407 1000 Number 0 Bowel Movements Output, Urine 400 Patient 148 lb 154 lb Weight Physical Exam: Patient is alert and oriented 3 Lungs: Clear to auscultation bilaterally Cardiovascular: Regular rate and rhythm Abdomen: Soft, nontender nondistended Extremities: There is extensive ecchymosis of the left lower extremity just below the groin to the ankle. Also a severe amount of swelling of the entire left lower extremity. There is tenderness to palpation. There is palpable pedal pulses. He is able to move his toes and his sensation is intact. Assessment/Plan Assessment/Plan 46-year-old man who fell from a ladder and injured his left leg about a month ago with continuing left leg pain and swelling. Compartment syndrome has been ruled out by orthopedic surgery. Cause of his leg swelling and anemia, vascular surgery was consulted to evaluate for any vascular injury. One could hemorrhage into the 5 of up to 1.5 L of blood. This is potentially a significant blood loss. However, after month his hemoglobin expected to be near normal. Also, his INR at baseline is 1.5 without any anticoagulation. He is possible that he may have injured muscular branches and blood in his thigh and leg. It is unlikely that he had a significant injury to his vessels even his examination. Recommendation: Hematological workup for severe anemia as well as hypocoagulable state with INR of 1.5 Please obtain CTA of left lower extremity. No urgent vascular surgery indicated at this time. Q for asking me to be involved in the care of this patient Consult Acknowledgment - Thank you for your consult request. Attending MD Review Statement Attending Statement Attending MD Statement: examined this patient, discuss w/resident/PA/CLINICAL STATISTICAL PROGRAMMER
[2016-08-20 15:02] LABS: ABSOLUTE BASOPHIL COUNT 0 /CUMM (0.0-0.2); ABSOLUTE EOSINOPHIL COUNT 0 /CUMM (0.0-0.7); ABSOLUTE LYMPH COUNT 0.8 /CUMM (1.2-3.4); ABSOLUTE MONOCYTE COUNT 0.1 /CUMM (0.10-0.60); BASOPHIL % 0.1 % (0.0-2.0); EOSINOPHIL % 1.5 % (0-5); HEMATOCRIT 22.4 % (42-52); MEAN CORPUSCULAR HGB 31.1 PG (27.0-31.0); MEAN CORPUSCULAR HGB CONC 33.7 G/DL (33.0-37.0); MEAN CORPUSCULAR VOLUME 92.5 FL (80.0-94.0); MEAN PLATELET VOLUME 8.6 FL (7.4-10.4); PLATELET COUNT 213 /CUMM (130-400); RBC DISTRIBUTION WIDTH 18.4 % (11.5-14.5); RED BLOOD CELL CT 2.42 /CUMM (4.70-6.10); WHITE BLOOD CELL COUNT 2.9 /CUMM (4.8-10.8)
[2016-08-20 15:17] LABS: GRANULOCYTE % 68.8 % (42.2-75.2)
[2016-08-21] VITALS (7 sets, daily range): BP systolic 100–134; BP diastolic 61–78
[2016-08-21 06:07] LABS: ABSOLUTE BASOPHIL COUNT 0 /CUMM (0.0-0.2); ABSOLUTE EOSINOPHIL COUNT 0.1 /CUMM (0.0-0.7); ABSOLUTE LYMPH COUNT 0.8 /CUMM (1.2-3.4); ABSOLUTE MONOCYTE COUNT 0.1 /CUMM (0.10-0.60); BASOPHIL % 0.5 % (0.0-2.0); EOSINOPHIL % 3.8 % (0-5); GRANULOCYTE % 64.7 % (42.2-75.2); HEMATOCRIT 25.1 % (42-52); MEAN CORPUSCULAR HGB 31.1 PG (27.0-31.0); MEAN CORPUSCULAR HGB CONC 33.3 G/DL (33.0-37.0); MEAN CORPUSCULAR VOLUME 93.6 FL (80.0-94.0); MEAN PLATELET VOLUME 8.5 FL (7.4-10.4); PLATELET COUNT 193 /CUMM (130-400); RBC DISTRIBUTION WIDTH 18.5 % (11.5-14.5); RED BLOOD CELL CT 2.68 /CUMM (4.70-6.10); WHITE BLOOD CELL COUNT 3.1 /CUMM (4.8-10.8)
--- NOTE | 2016-08-21 09:23 | PN- Resident CRCU ---
Subjective HPI/CRCU Issues: In ICU because of fall related to left thigh hematoma and presented with hypotensive and anemia. She was seen and examined. He is laying on bed looks relaxed and comfortable. No acute overnight events were reported by the patient or his nurse. Patient reported that's his left thigh hematoma started to be tender and now. He would like to be discharged as soon as possible. Objective Vital Signs & I&O Last 8 Hrs of Vitals and I&O: Intake & Output 08/21 1600 08/21 0800 08/21 0000 Intake Total 728 972 Output Total 500 500 Balance 228 472 Intake, Blood 250 Product Intake, IV 728 482 Intake, Oral 240 Number 0 Bowel Movements Output, Urine 500 500 Laboratory Tests 08/21 08/20 0533 1325 Chemistry Sodium (137 - 145 mmol/L) 136 L Potassium (3.5 - 5.1 mmol/L) 4.5 Chloride (98 - 107 mmol/L) 111 H Carbon Dioxide (22 - 30 mmol/L) 21 L Anion Gap (5 - 16) 4 L BUN (9 - 20 mg/dL) 13 Creatinine (0.7 - 1.2 mg/dL) 0.7 Estimated GFR (>60 ml/min) > 60 Glucose (65 - 99 mg/dL) 91 Calcium (8.4 - 10.2 mg/dL) 8.0 L Phosphorus (2.5 - 4.5 mg/dL) 3.2 Magnesium (1.6 - 2.3 mg/dL) 2.0 Total Bilirubin (0.2 - 1.3 mg/dL) 0.8 AST (17 - 59 U/L) 23 ALT (21 - 72 U/L) 31 Albumin (3.5 - 5.0 g/dL) 2.4 L Hematology CBC w Diff NO MAN DIFF REQ NO MAN DIFF REQ WBC (4.8 - 10.8 /CUMM) 3.1 L 2.9 L RBC (4.70 - 6.10 /CUMM) 2.68 L 2.42 L Hgb (14.0 - 18.0 G/DL) 8.3 L 7.5 L Hct (42 - 52 %) 25.1 L 22.4 L MCV (80.0 - 94.0 FL) 93.6 92.5 MCH (27.0 - 31.0 PG) 31.1 H 31.1 H RDW (11.5 - 14.5 %) 18.5 H 18.4 H Plt Count (130 - 400 /CUMM) 193 213 MPV (7.4 - 10.4 FL) 8.5 8.6 Gran % (42.2 - 75.2 %) 64.7 68.8 Lymphocytes % (20.5 - 51.1 %) 26.5 25.7 Monocytes % (1.7 - 9.3 %) 4.5 3.9 Eosinophils % (0 - 5 %) 3.8 1.5 Basophils % (0.0 - 2.0 %) 0.5 0.1 Absolute Granulocytes (1.4 - 6.5 /CUMM) 2.0 2.0 Absolute Lymphocytes (1.2 - 3.4 /CUMM) 0.8 L 0.8 L Absolute Monocytes (0.10 - 0.60 /CUMM) 0.1 L 0.1 L Absolute Eosinophils (0.0 - 0.7 /CUMM) 0.1 0 Absolute Basophils (0.0 - 0.2 /CUMM) 0 0 PUBS MCHC (33.0 - 37.0 G/DL) 33.3 33.7 Exam General Appearance: well developed/nourished, no apparent distress, alert, awake , comfortable Head: atraumatic, normal appearance Respiratory: normal breath sounds, chest non-tender, no respiratory distress, quiet respiration, lungs clear Cardiovascular: regular rate/rhythm Gastrointestinal: normal bowel sounds, soft, non-tender Extremities: hematoma over the posterior side of left thigh Skin: hematoma over the left lower extremity Current Medications: Current Medications Sig/Madie Start time Last Medication Dose Route Stop Time Status Admin Acetaminophen 650 MG Q6P PRN 08/19 2199 AC PO Acetaminophen 1,000 MG Q6P PRN 08/19 2199 AC IV Benzocaine/Menthol 1 ZENON Q2P PRN 08/20 1345 AC PO Diphenhydramine HCl 1 BRAVO Q12 08/20 1200 AC 08/20 TOP 2035 Folic Acid 1 MG DAILY 08/20 1245 AC 08/20 PO 1503 Lorazepam 0 Q1P PRN 08/19 2199 AC IV Morphine Sulfate 2 MG Q6-PRN PRN 08/19 220 AC IV Multivitamins 1 TAB DAILY 08/20 1300 AC 08/20 PO 1503 Nicotine 14 MG DAILY 08/19 1953 AC 08/19 TOP 1957 Phenytoin 100 MG DAILY 08/20 1000 AC 08/20 PO 1033 Phenytoin 200 MG QPM 08/19 2315 AC 08/20 PO 2032 Potassium Chloride 40 MEQ ONCE ONE 08/20 1300 DC 08/20 PO 08/20 1301 1502 Sodium Chloride 1,000 ML Q10H 08/19 2030 AC 08/21 IV 0021 Thiamine HCl 100 MG DAILY 08/20 1300 AC 08/20 PO 1503 Impression/Plan Impression/Problem List Impression: 1.Acute blood loss anemia His anemia most likely traumatic in origin, part of it can be secondary to alcohol abuse. He was guiac negative in the emergency department, with no reports or complaints of hematemesis or hemoptysis, abdominal pain, bright red blood per rectum, melena or hematochezia. Patient received a total of 3 units of RBCs so far. His H&H is stable * We will recheck CBC daily * Will transfuse when necessary * Vascular recommended left lower extremity CTA, patient is scheduled to do it this morning 2.Hypotension At admission he responded well to fluid resuscitation with normal saline. He is stable since. * If he does drop, we will give 1-2 more boluses and consider a central line/ pressor resuscititation * We will hold his BP meds for now 3.Seizure d/o 2/2 TBI * Continue dilantin 100 in the am and 200mg in the pm FULL CODE regular diet tylenol PO and IV with morhine for pain control holding pharm dvt ppx Problem List: 1. Acute blood loss anemia 2. Hypotension 3. Musculoskeletal pain of left lower extremity Pain Ratin Tomorrow's Labs & Rationales: cbc and Icu bundle Plan DVT/Prophylaxis: mechanical
--- NOTE | 2016-08-21 10:29 | PN- CRCU ---
Subjective HPI/Critical Care Issues: The patient is awake and alert. He feels better overall. His pain is less. His hemoglobin is now up to 8.3. He denies any new complaints today. Objective Current Medications: Current Medications Sig/Madie Start time Last Medication Dose Route Stop Time Status Admin Acetaminophen 650 MG Q6P PRN 08/19 2200 AC PO Acetaminophen 1,000 MG Q6P PRN 08/19 2200 AC IV Benzocaine/Menthol 1 ZENON Q2P PRN 08/20 1345 AC PO Diphenhydramine HCl 1 BRAVO Q12 08/20 1200 AC 08/20 TOP 203 Folic Acid 1 MG DAILY 08/20 1245 AC 08/20 PO 1503 Lorazepam 0 Q1P PRN 08/19 2199 AC IV Morphine Sulfate 2 MG Q6-PRN PRN 08/19 2199 AC IV Multivitamins 1 TAB DAILY 08/20 1300 AC 08/20 PO 1503 Nicotine 14 MG DAILY 08/19 1953 AC 08/19 TOP 195 Phenytoin 100 MG DAILY 08/20 1000 AC 08/20 PO 1033 Phenytoin 200 MG QPM 08/19 2315 AC 08/20 PO 2032 Potassium Chloride 40 MEQ ONCE ONE 08/20 1300 DC 08/20 PO 08/20 1301 1502 Sodium Chloride 1,000 ML Q10H 08/19 2030 AC 08/21 IV 0021 Thiamine HCl 100 MG DAILY 08/20 1300 AC 08/20 PO 1503 Vital Signs & I&O Last 24 Hrs of Vitals and I&O: Vital Signs Date Time Temp Pulse Resp B/P Pulse O2 O2 Flow FiO2 Ox Delivery Rate 08/21 08 99.6 61 18 112/64 08/21 08 99.6 61 18 112/64 97 Room Air 08/21 0800 97 Room Air 08/21 0600 74 25 112/69 08/21 0400 69 19 109/61 08/21 0400 99 Room Air Room Air 08/21 0000 74 20 116/72 08/21 0000 97 Room Air Room Air 08/20 2300 97.4 74 20 116/72 99 Room Air Room Air 08/20 2200 88 16 104/60 08/205 98.4 81 29 120/70 08/20 1954 99 Room Air Room Air 08/20 1600 99.4 70 18 130/70 08/20 1600 99.4 70 18 130/70 98 Room Air 08/20 1447 99.1 72 22 114/76 08/20 1200 98.6 72 22 110/60 100 Room Air 08/20 1200 100 Room Air Intake & Output 08/21 1600 08/21 0800 08/21 0000 Intake Total 728 972 Output Total 500 500 Balance 228 472 Intake, Blood 250 Product Intake, IV 728 482 Intake, Oral 240 Number 0 Bowel Movements Output, Urine 500 500 Physical Exam General Appearance: no distress, alert, awake, comfortable Head: atraumatic, normal appearance Eyes: PERRL Respiratory: normal breath sounds, chest non-tender, no respiratory distress, quiet respiration, lungs clear Cardiovascular: regular rate/rhythm Gastrointestinal: normal bowel sounds, soft, non-tender Extremities: hematoma over the left thigh posteriorly Results Last 24 Hrs of Lab Results: Laboratory Tests 08/21/16 0533: Anion Gap 4 L, Estimated GFR > 60, Glucose 91, Calcium 8.0 L, Phosphorus 3.2, Magnesium 2.0, Total Bilirubin 0.8, AST 23, ALT 31, Albumin 2.4 L, CBC w Diff NO MAN DIFF REQ, RBC 2.68 L, MCV 93.6, MCH 31.1 H, RDW 18.5 H, MPV 8.5, Gran % 64.7, Lymphocytes % 26.5, Monocytes % 4.5, Eosinophils % 3.8, Basophils % 0.5, Absolute Granulocytes 2.0, Absolute Lymphocytes 0.8 L, Absolute Monocytes 0.1 L, Absolute Eosinophils 0.1, Absolute Basophils 0, PUBS MCHC 33.3 08/20/16 1325: CBC w Diff NO MAN DIFF REQ, RBC 2.42 L, MCV 92.5, MCH 31.1 H, RDW 18.4 H, MPV 8.6, Gran % 68.8, Lymphocytes % 25.7, Monocytes % 3.9, Eosinophils % 1.5, Basophils % 0.1, Absolute Granulocytes 2.0, Absolute Lymphocytes 0.8 L, Absolute Monocytes 0.1 L, Absolute Eosinophils 0, Absolute Basophils 0, PUBS MCHC 33.7 Impression/Plan Impression/Plan Impression/Plan: 1. Acute blood loss anemia, without evidence of active bleeding. This is most likely traumatic. 2. Hypotension - resolved with fluid resuscitation. 3. TBI and history of seizure disorder, on Dilantin. 4. History of EtOH abuse. Recommendations: * Continue to monitor hemoglobin and for bleeding. * Check CBC daily. * Will follow-up vascular surgery recommendations including left lower extremity CTA. * Continue Dilantin. * Continue multivitamin, thiamine and folate. * No SQ heparin due to bleeding. Alps for DVT prophylaxis. * Downgrade to gen [employer].
--- NOTE | 2016-08-21 11:19 | Transfer of Care Summary ---
Hospital Course Course Hospital Course: 46/M with PMH of HTN, hx of traumatic brain injury with resulting seizure disorder [on phenytoin - last seizure many years ago] presents to ED after he was sent in by Dr. Scanlon after being found hypotensive. The patient was being evaluated for left leg pain. He states that he fell off a ladder and his leg was caught in it. This happened 5-6 weeks ago per ED reports. Previous CT 07/17/16 showed skin thickening and edema in the soft tissues. He was also evalauted with a knee/tib/fib MRI which showed mild to moderate strain/contusion of the biceps femoris, gastrocnemius and peroneus longus. His pain is wax and wean between 10/10 and 2/10. Pain. Worse with walking. He denies any joints pain, swelling or erythema. He denies skin rash or any history of rheumatic disease. Denies any other muscular pain. In the ED he was found to be hypotensive, 62/35 with the remainder of his vitals stable. He was also found to be anemic with a hemoglobin of 5.6 and hematocrit 17.2. CTA ruled out PE or any acute pathology and lower extremity Doppler ruled out any venous thrombus. Per the ED staff, his compartment pressures were measured the orthopedic surgeon's office and the patient does not have compartment syndrome. He does have significant past history of tobacco abuse, 2PPD and alcohol abuse, sixpack of beer every 2-3 days. He works as a [employer]. He denies any known bleeding diathesis or family history of bleeding. Issue addressed since admission 1. Anemia without active bleeding most likely2/2 trauma 6 weeks ago. 6 weeks ago patient fell off a ladder and his leg was caught in it. He was sitting in by his orthopedic because of hypotension. He was found to be anemic with hemoglobin of 5, most likely traumatic in origin, part of it can be secondary to alcohol abuse. He was guiac negative in the emergency department, with no reports or complaints of hematemesis, hemoptysis, abdominal pain, bright red blood per rectum, melena or hematochezia. CTA of left LE result was 1- concerning for compartment syndrome, 2-No focal hematoma is seen, 3-No arterial injury, 4-No fracture identified. Based on the CTA vascular recommended no intervention and orthopedic assessment was this is not compartment and no intervention is needed. Since admission patient received a total of 3 units of RBCs. His H&H is stable on the day of transfer. #####Recommendation for next team to do##### * recheck CBC daily * Guaiac all stool * Will transfuse blood when necessary * Avoid SQ heparin due to bleeding. * follow up vascular and orthopedic recommendations 2.Hypotension At admission patient was hypotensive, he responded well to fluid resuscitation with normal saline. He is hemodynamically stable since. #####Recommendation for next team to do##### * hold his BP meds for now, restart based on his blood pressure * Bolused with normal saline if necessary 3.Seizure d/o 2/2 TBI #####Recommendation for next team to do##### * Continue phenytoin 100 in the am and 200mg in the pm 4.History of EtOH abuse Patient has a history of alcohol abuse in the past. Because of the fall urine toxicology was done and was negative except phenytoin that he takes for his seizure. #####Recommendation for next team to do##### * Continue multivitamin, thiamine and folate. * Continue CIWA protocol * Continue IV Ativan 1 mg Q1P Assessment/Plan: see hospital course
--- NOTE | 2016-08-21 14:34 | CT SCAN REPORT ---
STUDY PERFORMED: CTA OF THE ABDOMEN, PELVIS AND LOWER EXTREMITY RUNOFF WITH CONTRAST INTERPRETING VASCULAR \T\ INTERVENTIONAL RADIOLOGIST: Justine Valdovinos MD, PhD HISTORY: Left thigh hematoma. Severe anemia. Injury one month ago with recent acute increase in pain. TECHNIQUE: Routine abdominal aorta and lower extremity runoff CTA protocol with contrast was performed. 119 mL of Optiray 350 was administered. The images were reviewed and postprocessed on a dedicated 3-D workstation. TOTAL DLP: 617.26 mGy-cm COMPARISON: CT noncontrast 07/17/2016. FINDINGS: VASCULAR: Mesenteric Arteries: Patent and unremarkable. Renal Arteries: Single renal arteries are patent bilaterally. Infrarenal Abdominal Aorta: Patent without evidence of aneurysm, dissection or stenosis. Focal atherosclerotic calcification of the distal aorta near the bifurcation without stenosis. Right Lower Extremity Arterial Perfusion: Minimal atherosclerotic disease of the right common femoral artery. There is no evidence of aneurysm, dissection or stenosis of the arteries to the right lower extremity. Intact three-vessel runoff. Contrast bolus is weak at the level of the ankle and distally, however no focal stenoses are seen. Left Lower Extremity Arterial Perfusion: Minimal atherosclerotic disease of the left common femoral artery without stenosis. There is no evidence of aneurysm, dissection or stenosis of the arteries of the left lower extremity. 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 There is an effective two-vessel runoff as the [place] posterior tibial artery is quite diminutive. No acute arterial injury or active extravasation is seen. NONVASCULAR: Lung Bases: Moderate dependent changes. Liver, Gallbladder, And Biliary Tree: The liver is normal in size, shape, and attenuation. No focal hepatic lesion or biliary ductal dilatation is present. The gallbladder is unremarkable with no evidence of radiopaque gallstones, gallbladder wall thickening, or obvious pericholecystic inflammatory changes. Pancreas: Unremarkable. Spleen: Unremarkable. Adrenal Glands: Unremarkable. Kidneys And Ureters: The kidneys are normal in size, shape, and attenuation. No hydronephrosis, hydroureter, or calculi seen. No perinephric stranding. Bladder: Unremarkable. Gastrointestinal Tract: Diverticulosis without CT evidence of diverticulitis. A small amount of fluid is seen collecting within the paracolic gutters. No bowel obstruction. The appendix is unremarkable. Abdominal Wall: No significant hernia is appreciated. Minimal fluid layers within the paracolic gutters. Lymph Nodes: Normal. Pelvic Viscera: Unremarkable. Osseous Structures: No evidence of acute or suspicious osseous abnormality. There is extreme swelling of the soft tissues involving the left lower extremity. The abductor muscle compartment in particular is swollen and there is heterogeneous attenuation of the muscles, predominantly demonstrating hypodensity when compared with the contralateral side. The calf muscles are also affected demonstrating swelling and hypodensity. This predominantly involves the posterior calf. A crescent of hyperdensity is seen within the fascial layer which contains the muscle compartments. This is seen layering along the dependent aspects of the thigh adjacent to the vastus lateralis, biceps femoris, semitendinous and semimembranosus muscles. This crescent continuous into the lower leg and surrounds the muscles of the lower leg to the level of the Achilles tendon. There is diffuse skin thickening and edema seen within the subcutaneous fat. No focal rounded hematoma is identified. IMPRESSION: 1. Marked swelling of the muscles and soft tissues of the left lower extremity with hypodense attenuation of the muscles concerning for compartment syndrome. Clinical correlation is requested. 2. No focal hematoma is seen. Rather, there is a crescent of hyperdense material layering along the fascia which contains the muscles of the thigh and calf, suggestive of acute or subacute blood products. Active extravasation is not identified. 3. No fracture identified. 4. No arterial injury. This critical result was discussed with Dr. Cunningham at 1:35 PM on 08/21/2016 and it was ascertained that the content and urgency of the report was understood at the time of direct communication.
[2016-08-21 15:00] LABS: ABSOLUTE BASOPHIL COUNT 0 /CUMM (0.0-0.2); ABSOLUTE EOSINOPHIL COUNT 0.1 /CUMM (0.0-0.7); ABSOLUTE MONOCYTE COUNT 0.1 /CUMM (0.10-0.60); MEAN PLATELET VOLUME 8.6 FL (7.4-10.4); PLATELET COUNT 188 /CUMM (130-400)
[2016-08-21 15:06] LABS: ABSOLUTE LYMPH COUNT 0.5 /CUMM (1.2-3.4); BASOPHIL % 0.6 % (0.0-2.0); EOSINOPHIL % 3.8 % (0-5); MEAN CORPUSCULAR HGB CONC 33.2 G/DL (33.0-37.0); MEAN CORPUSCULAR VOLUME 93.6 FL (80.0-94.0); RED BLOOD CELL CT 2.67 /CUMM (4.70-6.10)
[2016-08-21 15:31] LABS: GRANULOCYTE % 58.6 % (42.2-75.2); WHITE BLOOD CELL COUNT 2.3 /CUMM (4.8-10.8)
[2016-08-22] VITALS: BP 138/78
[2016-08-22 05:25] LABS: PT 14.6 SEC (9.4-12.5); PTT 31 SEC (25-37)
[2016-08-22 05:32] LABS: ABSOLUTE BASOPHIL COUNT 0 /CUMM (0.0-0.2); ABSOLUTE EOSINOPHIL COUNT 0.1 /CUMM (0.0-0.7); ABSOLUTE GRANULOCYTE CT 1.7 /CUMM (1.4-6.5); ABSOLUTE LYMPH COUNT 0.7 /CUMM (1.2-3.4); ABSOLUTE MONOCYTE COUNT 0.1 /CUMM (0.10-0.60); BASOPHIL % 0.7 % (0.0-2.0); EOSINOPHIL % 5.4 % (0-5); GRANULOCYTE % 64.6 % (42.2-75.2); MEAN CORPUSCULAR HGB 31.4 PG (27.0-31.0); MEAN CORPUSCULAR HGB CONC 33.6 G/DL (33.0-37.0); MEAN CORPUSCULAR VOLUME 93.6 FL (80.0-94.0); MEAN PLATELET VOLUME 8.5 FL (7.4-10.4); PLATELET COUNT 200 /CUMM (130-400); RBC DISTRIBUTION WIDTH 17.9 % (11.5-14.5); RED BLOOD CELL CT 2.67 /CUMM (4.70-6.10); WHITE BLOOD CELL COUNT 2.7 /CUMM (4.8-10.8)
--- NOTE | 2016-08-22 07:51 | PN- Orthopedic ---
Subjective Subjective: Seen in follow-up today. Resting fairly comfortably in the bed. The patient was examined today on the CT angiogram was reviewed with the radiologist. Again the patient showing no clinical signs of compartment syndrome. He is resting comfortably in his pain is controlled with Tylenol. He has no pain with passive motion of his toes ankle or knee. He is mildly tender to palpation over the thigh and calf. There is moderate swelling. The extremity is grossly neurovascularly intact. Objective Vital Signs and I&Os Vital Signs Date Time Temp Pulse Resp B/P Pulse O2 O2 Flow FiO2 Ox Delivery Rate 08/22 0000 97.6 88 18 138/78 02 2300 97.9 88 18 134/78 95 Room Air 08/21 1600 97.8 64 18 100/68 08/21 1600 97.8 64 18 100/68 97 Room Air 08/21 1000 80 24 122/72 08/21 0800 99.6 61 18 112/64 08/21 0800 99.6 61 18 112/64 97 Room Air 08/21 0800 97 Room Air Intake & Output 08/22 0808/22 0000 08/21 1600 08/21 0800 08/21 0000 08/20 1600 Intake Total 1100 1256 1005 929 675 9852 Output Total 900 600 350 500 500 400 Balance 200 656 655 228 472 740 Intake, Blood 250 100 Product Intake, IV 800 776 765 728 482 700 Intake, Oral 300 480 240 240 340 Number 0 Bowel Movements Output, Urine 900 600 350 500 500 400 Assessment/Plan Assessment/Plan Continued leg pain and swelling now on Tylenol for pain control. The patient is 7 weeks since his original crush injury. Physical exam and lab data showed no evidence of compartment syndrome. CT angiogram shows diffuse swelling throughout his muscular compartments of the thigh and leg. I will continue to monitor the patient's clinical exam and for now we will elevate the leg applied LIA stockings and order new labs for the morning.
--- NOTE | 2016-08-22 07:53 | PN- Orthopedic ---
Subjective Subjective: Agent seen this morning. Patient is resting comfortably in his bed watching television. No significant complaints of severe pain. Lia stocking is on. Objective Vital Signs and I&Os Vital Signs Date Time Temp Pulse Resp B/P Pulse O2 O2 Flow FiO2 Ox Delivery Rate 08/22 0000 97.6 88 18 138/78 02/ 2300 97.9 88 18 134/78 95 Room Air / 1600 97.8 64 18 100/68 02/ 1600 97.8 64 18 100/68 97 Room Air 08/21 1000 80 24 122/72 08/21 0800 99.6 61 18 112/64 08/21 0800 99.6 61 18 112/64 97 Room Air 08/21 0800 97 Room Air Intake & Output 08/22 0808/22 0000 08/21 1600 08/21 0808/21 0000 08/20 1600 Intake Total 1100 1256 1005 719 889 5013 Output Total 900 600 350 500 500 400 Balance 200 656 655 228 472 740 Intake, Blood 250 100 Product Intake, IV 800 776 765 728 482 700 Intake, Oral 300 480 240 240 340 Number 0 Bowel Movements Output, Urine 900 600 350 500 500 400 On physical exam the patient's LIA stockings has been applied. The left leg is mildly tender to palpation with swelling. There is no pain with range of motion of the knee or the ankle or the toes. The extremity is neurovascularly intact. Labs from this morning show no evidence of elevated CPK or white count. Assessment/Plan Assessment/Plan Continued left leg swelling and pain secondary to a "crushed" injury 7 weeks ago. This point still have no signs or symptoms of compartment syndrome in the leg. Continue with pain control and edema control.
[2016-08-22 08:00] VITALS: BP 112/74
--- NOTE | 2016-08-22 08:43 | PN- Housestaff ---
Subjective Follow-up For: multiple fall related to left thigh hematoma and presented with hypotensive and anemia. Subjective: She was seen and examined. He is lying on bed looks relaxed and comfortable. No acute overnight events were reported by the patient or his nurse. Reported significant improvement on his left leg pain. Patient wants to leave the hospital as soon as possible. He denies any current complaint. Review of Systems Constitutional: Reports: see HPI. Denies: chills, fever. Objective Last 24 Hrs of Vital Signs/I&O Vital Signs Date Time Temp Pulse Resp B/P Pulse O2 O2 Flow FiO2 Ox Delivery Rate 08/22 08 Room Air 08/22 08 98.5 62 18 112/74 08/22 0800 98.5 62 18 112/74 98 Room Air 08/22 0000 97.6 88 18 138/78 08/21 2300 97.9 88 18 134/78 95 Room Air 08/21 1600 97.8 64 18 100/68 02 1600 97.8 64 18 100/68 97 Room Air Intake & Output 08/22 1600 08/22 0800 08/22 0000 Intake Total 1100 1256 Output Total 900 600 Balance 200 656 Intake, IV 800 776 Intake, Oral 300 480 Output, Urine 900 600 Physical Exam General Appearance: Alert, Oriented X3, Cooperative, No Acute Distress Skin: blue purple discoloration of the left thigh posteriorly HEENT: Atraumatic, PERRLA, EOMI, Mucous Membr. moist/pink Cardiovascular: Regular Rate, Normal S1, Normal S2, No Murmurs Lungs: Clear to Auscultation, Normal Air Movement Abdomen: Normal Bowel Sounds, Soft, No Tenderness Neurological: Normal Speech Extremities: No Clubbing, No Cyanosis, No Edema, Normal Pulses, bruises over the left thigh( history of trauma) Current Medications: Current Medications Sig/Madie Start time Last Medication Dose Route Stop Time Status Admin Acetaminophen 650 MG Q6P PRN 08/190 AC 08/21 PO 1036 Acetaminophen 1,000 MG Q6P PRN 08/19 2200 AC IV Benzocaine/Menthol 1 ZENON Q2P PRN 08/20 1345 AC 08/21 PO 1036 Diphenhydramine HCl 1 BRAVO Q12 08/20 1200 AC 08/20 TOP 2035 Folic Acid 1 MG DAILY 08/20 1245 AC 08/22 PO 0958 Lorazepam 0 Q1P PRN 08/19 2199 AC IV Morphine Sulfate 2 MG Q6-PRN PRN 08/19 2199 AC IV Multivitamins 1 TAB DAILY 08/20 1300 AC 08/22 PO 0958 Nicotine 14 MG DAILY 08/19 1952 AC 08/19 TOP 1956 Phenytoin 100 MG DAILY 08/20 1000 AC 08/22 PO 0958 Phenytoin 200 MG QPM 08/19 2315 AC 08/21 PO 2213 Sodium Chloride 1,000 ML Q10H 08/19 2030 DC 08/22 IV 0805 Thiamine HCl 100 MG DAILY 08/20 1300 AC 08/22 PO 0958 Last 24 Hrs of Lab/Bridger Results Last 24 Hrs of Labs/Mics: Laboratory Tests 08/22/16 0415: Anion Gap 4 L, Estimated GFR > 60, Glucose 95, Calcium 7.9 L, Phosphorus 3.3, Magnesium 1.9, Total Bilirubin 0.7, AST 20, ALT 33, Creatine Kinase 62, Albumin 2.2 L, PT 14.6 H, INR 1.40 H, APTT 31, CBC w Diff MAN DIFF ORDERED, RBC 2.67 L, MCV 93.6, MCH 31.4 H, RDW 17.9 H, MPV 8.5, Gran % 64.6, Lymphocytes % 25.1, Monocytes % 4.2, Eosinophils % 5.4 H, Basophils % 0.7, Absolute Granulocytes 1.7, Segmented Neutrophils 70, Band Neutrophils 1, Absolute Lymphocytes 0.7 L, Lymphocytes 20 L, Monocytes 6, Absolute Monocytes 0.1 L, Eosinophils 2, Absolute Eosinophils 0.1, Absolute Basophils 0, Metamyelocytes 1, Nucleated RBCs 1 H, Platelet Estimate ADEQUATE, Polychromasia 1+, Poikilocytosis 1+, Ovalocytes 1+, PUBS MCHC 33.6, Fld Total RBCs Counted 100 08/21/16 1530: Urine Opiates Screen < 100.00, Methadone Screen < 40, Barbiturate Screen 98, Ur Phencyclidine Scrn < 6.00, Amphetamines Screen < 100, U Benzodiazepines Scrn < 85, Urine Cocaine Screen < 50, Urine Cannabis Screen < 5.00 08/21/16 1425: CBC w Diff NO MAN DIFF REQ, RBC 2.67 L, MCV 93.6, MCH 31.0, RDW 18.0 H, MPV 8.6, Gran % 58.6, Lymphocytes % 30.6, Monocytes % 6.4, Eosinophils % 3.8, Basophils % 0.6, Absolute Granulocytes 1.0 L, Absolute Lymphocytes 0.5 L, Absolute Monocytes 0.1 L, Absolute Eosinophils 0.1, Absolute Basophils 0, PUBS MCHC 33.2 Assessment/Plan Assessment: 1. Anemia without active bleeding most likely2/2 trauma His anemia most likely traumatic in origin, part of it can be secondary to alcohol abuse. He was guiac negative in the emergency department, with no reports or complaints of hematemesis, hemoptysis, abdominal pain, bright red blood per rectum, melena or hematochezia. Based on lower extremity CTA vascular recommended no intervention. Patient received a total of 3 units of RBCs so far. His H&H is stable today. * We will recheck CBC daily * Guaiac all stool * Will transfuse blood when necessary * Will control pain with morphine 2 mg IV every 6 when necessary * We will avoid SQ heparin due to bleeding. * We will follow vascular and orthopedic recommendations 2.Hypotension At admission he responded well to fluid resuscitation with normal saline. He is stable since. * We will hold his BP meds for now * Bolused with normal saline if necessary 3.Seizure d/o 2/2 TBI * Continue phenytoin 100 in the am and 200mg in the pm 4.History of EtOH abuse * Continue multivitamin, thiamine and folate. * Continue CIWA protocol * Continue IV Ativan 1 mg Q1P FULL CODE regular diet holding pharm dvt ppx only on Alps Problem List: 1. Acute blood loss anemia 2. Hypotension 3. Musculoskeletal pain of left lower extremity Pain Ratin Pain Location: left LE Pain Goal: Remain pain free Pain Plan: See assessment and plan Tomorrow's Labs & Rationales: CBC and BEP
--- NOTE | 2016-08-22 09:22 | PN- Pulmonary ---
Subjective HPI/Critical Care Issues: The patient is awake and alert. He reports feeling better overall. His left lower extremity swelling has improved. He is ambulating without difficulty. He wants to go home. His hemoglobin has been stable. Objective Current Medications: Current Medications Sig/Madie Start time Last Medication Dose Route Stop Time Status Admin Acetaminophen 650 MG .STK-MED ONE 08/21 1034 DC PO 08/21 1035 Acetaminophen 650 MG Q6P PRN 08/19 2200 AC 08/21 PO 1036 Acetaminophen 1,000 MG Q6P PRN 08/19 2200 AC IV Benzocaine/Menthol 1 ZENON Q2P PRN 08/20 1345 AC 08/21 PO 1036 Diphenhydramine HCl 1 BRAVO Q12 08/20 1200 AC 08/20 TOP 203 Folic Acid 1 MG DAILY 08/20 1245 AC 08/21 PO 1034 Lorazepam 0 Q1P PRN 08/19 2200 AC IV Morphine Sulfate 2 MG Q6-PRN PRN 08/19 2200 AC IV Multivitamins 1 TAB DAILY 08/20 1300 AC 08/21 PO 1035 Nicotine 14 MG DAILY 08/19 1953 AC 08/19 TOP 195 Phenytoin 100 MG DAILY 08/20 1000 AC 08/21 PO 1035 Phenytoin 200 MG QPM 08/19 2315 AC 08/21 PO 2213 Sodium Chloride 1,000 ML Q10H 08/19 2030 DC 08/22 IV 0805 Thiamine HCl 100 MG DAILY 08/20 1300 AC 08/21 PO 1035 Vital Signs & I&O Last 24 Hrs of Vitals and I&O: Vital Signs Date Time Temp Pulse Resp B/P Pulse O2 O2 Flow FiO2 Ox Delivery Rate 08/22 0800 Room Air 08/22 0800 98.5 62 18 112/74 08/22 0800 98.5 62 18 112/74 98 Room Air 08/22 0000 97.6 88 18 138/78 02/ 2300 97.9 88 18 134/78 95 Room Air 08/21 1600 97.8 64 18 100/68 02 1600 97.8 64 18 100/68 97 Room Air 08/21 1000 80 24 122/72 Intake & Output 08/22 1600 08/22 0800 08/22 0000 Intake Total 1100 1256 Output Total 900 600 Balance 200 656 Intake, IV 800 776 Intake, Oral 300 480 Output, Urine 900 600 Physical Exam General Appearance: no distress, alert, awake, comfortable Head: atraumatic, normal appearance Eyes: PERRL Respiratory: normal breath sounds, chest non-tender, no respiratory distress, quiet respiration, lungs clear Cardiovascular: regular rate/rhythm Gastrointestinal: normal bowel sounds, soft, non-tender Extremities: hematoma over the left thigh posteriorly, less tense Results Last 24 Hrs of Lab Results: Laboratory Tests 08/22/16 0415: Anion Gap 4 L, Estimated GFR > 60, Glucose 95, Calcium 7.9 L, Phosphorus 3.3, Magnesium 1.9, Total Bilirubin 0.7, AST 20, ALT 33, Creatine Kinase 62, Albumin 2.2 L, PT 14.6 H, INR 1.40 H, APTT 31, CBC w Diff MAN DIFF ORDERED, RBC 2.67 L, MCV 93.6, MCH 31.4 H, RDW 17.9 H, MPV 8.5, Gran % 64.6, Lymphocytes % 25.1, Monocytes % 4.2, Eosinophils % 5.4 H, Basophils % 0.7, Absolute Granulocytes 1.7, Segmented Neutrophils 70, Band Neutrophils 1, Absolute Lymphocytes 0.7 L, Lymphocytes 20 L, Monocytes 6, Absolute Monocytes 0.1 L, Eosinophils 2, Absolute Eosinophils 0.1, Absolute Basophils 0, Metamyelocytes 1, Nucleated RBCs 1 H, Platelet Estimate ADEQUATE, Polychromasia 1+, Poikilocytosis 1+, Ovalocytes 1+, PUBS MCHC 33.6, Fld Total RBCs Counted 100 08/21/16 1530: Urine Opiates Screen < 100.00, Methadone Screen < 40, Barbiturate Screen 98, Ur Phencyclidine Scrn < 6.00, Amphetamines Screen < 100, U Benzodiazepines Scrn < 85, Urine Cocaine Screen < 50, Urine Cannabis Screen < 5.00 08/21/16 1425: CBC w Diff NO MAN DIFF REQ, RBC 2.67 L, MCV 93.6, MCH 31.0, RDW 18.0 H, MPV 8.6, Gran % 58.6, Lymphocytes % 30.6, Monocytes % 6.4, Eosinophils % 3.8, Basophils % 0.6, Absolute Granulocytes 1.0 L, Absolute Lymphocytes 0.5 L, Absolute Monocytes 0.1 L, Absolute Eosinophils 0.1, Absolute Basophils 0, PUBS MCHC 33.2 Impression/Plan Impression/Plan Impression/Plan: 1. Acute blood loss anemia, without evidence of active bleeding. This is most likely traumatic. 2. Hypotension - resolved with fluid resuscitation. 3. TBI and history of seizure disorder, on Dilantin. 4. History of EtOH abuse. Recommendations: * Continue to monitor hemoglobin and for bleeding. * Check CBC daily. * Will continue to follow up ortho and vascular recommendations. * Continue Dilantin. * Continue multivitamin, thiamine and folate. * No SQ heparin due to bleeding. Alps for DVT prophylaxis. * Ambulate, increase activity.
[2016-08-22 14:32] VITALS: BP 128/82
[2016-08-22 16:00] VITALS: BP 128/62
[2016-08-22 20:00] VITALS: BP 124/70
[2016-08-22 22:31] VITALS: BP 98/52
[2016-08-23 02:00] VITALS: BP 104/66
[2016-08-23 03:33] VITALS: BP 104/66
[2016-08-23 06:32] VITALS: BP 110/80
--- NOTE | 2016-08-23 07:28 | PN- Housestaff ---
EMMANUEL AMES 08/23/16 0728: Subjective Follow-up For: Left leg pain and swelling. Subjective: Patient seen and examined. He remains very agitated intermittently and wanted to leave AMA. He has been evaluated by Vascular and Ortho, Dr. Dhaliwal. Patient is unlikley to have compartment syndrome according to them Review of Systems Constitutional: Reports: see HPI. Objective Last 24 Hrs of Vital Signs/I&O Vital Signs Date Time Temp Pulse Resp B/P Pulse O2 O2 Flow FiO2 Ox Delivery Rate 08/23 1422 98.0 71 20 100/55 98 / 0632 97.5 68 20 110/80 97 Room Air 08/23 0333 97.5 67 20 104/66 98 Room Air 08/23 0200 97.5 67 20 104/66 08/22 2231 98.1 68 20 98/52 99 Room Air 08/22 2000 98.7 71 18 124/70 08/22 1600 97.4 67 18 128/62 Intake & Output 08/23 1600 08/23 0800 08/23 0000 Intake Total 720 0 1210 Output Total 700 Balance 720 -700 1210 Intake, IV 0 10 Intake, Oral 720 0 1200 Number 0 Bowel Movements Output, Urine 700 Patient 66.678 kg Weight Physical Exam General Appearance: Alert, Oriented X3, agitated Neck: Supple Cardiovascular: Regular Rate, Normal S1, Normal S2 Lungs: Clear to Auscultation, Normal Air Movement Extremities: left leg from midthigh to mid leg is hard and swollen, some erythema also noted Current Medications: Current Medications Sig/Madie Start time Last Medication Dose Route Stop Time Status Admin Acetaminophen 650 MG Q6P PRN 08/19 2199 AC 08/21 PO 1036 Acetaminophen 1,000 MG Q6P PRN 08/19 2199 AC IV Benzocaine/Menthol 1 ZENON Q2P PRN 08/20 1345 AC 08/22 PO 1710 Diphenhydramine HCl 1 BRAVO Q12 08/20 1200 AC 08/20 TOP 2034 Folic Acid 1 MG DAILY 08/20 1245 AC 08/23 PO 0825 Lorazepam 0 Q1P PRN 08/19 2199 AC IV Morphine Sulfate 2 MG Q6-PRN PRN 08/19 2199 AC IV Multivitamins 1 TAB DAILY 08/20 1300 AC 08/23 PO 0825 Nicotine 14 MG DAILY 01/1952 08/19 TOP 1956 Patient Medication 1 ED .STK-MED ONE 08/23 1410 MI Teaching ED 08/23 1411 Phenytoin 100 MG DAILY 08/20 1000 08/23 PO 0825 Phenytoin 200 MG QPM 08/19 2315 08/22 PO 2103 Thiamine HCl 100 MG DAILY 08/20 1300 AC 08/23 PO 0825 Last 24 Hrs of Lab/Bridger Results Last 24 Hrs of Labs/Mics: Laboratory Tests 08/23/16 0934: CBC w Diff NO MAN DIFF REQ, RBC 3.07 L, MCV 95.0 H, MCH 31.4 H, RDW 17.7 H, MPV 8.1, Gran % 66.4, Lymphocytes % 23.4, Monocytes % 5.5, Eosinophils % 4.3, Basophils % 0.4, Absolute Granulocytes 1.8, Absolute Lymphocytes 0.6 L, Absolute Monocytes 0.2, Absolute Eosinophils 0.1, Absolute Basophils 0, PUBS MCHC 33.0 Assessment/Plan Assessment: 1. Anemia without active bleeding most likely2/2 trauma His anemia most likely traumatic in origin, part of it can be secondary to alcohol abuse. He was guiac negative in the emergency department, with no reports or complaints of hematemesis, hemoptysis, abdominal pain, bright red blood per rectum, melena or hematochezia. Based on lower extremity CTA vascular recommended no intervention. Patient received a total of 3 units of RBCs so far. His H&H is stable today. 2.Hypotension At admission he responded well to fluid resuscitation with normal saline. He is stable since. He is continued on losartan on discharge 3.Seizure d/o 2/2 TBI * Continue phenytoin 100 in the am and 200mg in the pm 4.History of EtOH abuse * Continue multivitamin, thiamine and folate. * Continue CIWA protocol * Continue IV Ativan 1 mg Q1P, did not require any FULL CODE regular diet holding pharm dvt ppx only on Alps Problem List: 1. Symptomatic anemia Pain Ratin Pain Location: Left leg Pain Goal: Pain 4 or less Pain Plan: tylenol prn for pain Tomorrow's Labs & Rationales: none VARUN WHITE MD 08/23/16 1037: Attending MD Review Statement Attending Statement Attending MD Statement: examined this patient, discuss w/resident/PA/GIS SOFTWARE ENGINEER, agreed w/resident/PA/GIS SOFTWARE ENGINEER, reviewed EMR data (avail), discussed with nursing, discussed with case mgmt, reviewed images, amended to note Attending Assessment/Plan: Patient seen and examined, he currently denies any complaints. He has a somewhat swings because in the morning he was agitated but currently when I saw him he was calm. He still has some pain in the left lower extremity specially in the Calf region. Calf is still swollen. Vital Signs Date Time Temp Pulse Resp B/P Pulse O2 O2 Flow FiO2 Ox Delivery Rate 08/23 0632 97.5 68 20 110/80 97 Room Air 08/23 0333 97.5 67 20 104/66 98 Room Air 08/23 0200 97.5 67 20 104/66 08/22 2231 98.1 68 20 98/52 99 Room Air 08/22 2000 98.7 71 18 124/70 08/22 1600 97.4 67 18 128/62 08/22 1432 98.4 79 20 128/82 100 on exam; aox3, nad. cv; s1,s2, rrr. resp; clear abd; soft, nt, bs+ ext; + edema lle. there is also bruising all over. As evaluated by ortho and vascular surg, no evidence of compartment syndrome. Laboratory Tests 08/23 0934 Hematology CBC w Diff NO MAN DIFF REQ WBC (4.8 - 10.8 /CUMM) 2.8 L RBC (4.70 - 6.10 /CUMM) 3.07 L Hgb (14.0 - 18.0 G/DL) 9.6 L Hct (42 - 52 %) 29.2 L MCV (80.0 - 94.0 FL) 95.0 H MCH (27.0 - 31.0 PG) 31.4 H RDW (11.5 - 14.5 %) 17.7 H Plt Count (130 - 400 /CUMM) 212 MPV (7.4 - 10.4 FL) 8.1 Gran % (42.2 - 75.2 %) 66.4 Lymphocytes % (20.5 - 51.1 %) 23.4 Monocytes % (1.7 - 9.3 %) 5.5 Eosinophils % (0 - 5 %) 4.3 Basophils % (0.0 - 2.0 %) 0.4 Absolute Granulocytes (1.4 - 6.5 /CUMM) 1.8 Absolute Lymphocytes (1.2 - 3.4 /CUMM) 0.6 L Absolute Monocytes (0.10 - 0.60 /CUMM) 0.2 Absolute Eosinophils (0.0 - 0.7 /CUMM) 0.1 Absolute Basophils (0.0 - 0.2 /CUMM) 0 PUBS MCHC (33.0 - 37.0 G/DL) 33.0 A/P; 46-year-old male with past medical history significant for hypertension, traumatic brain injury, history of seizure disorder on Dilantin who was admitted with left lower extent D pain, crush injury as well as acute blood loss anemia secondary to blood loss in the left lower extremity. Status post 3 units of RBC transfusion. H&H relatively stable. Has been evaluated by orthopedic as well as vascular surgery, no evidence off compartment syndrome. They recommended to monitor the H&H as well as elevate the leg for edema. Patient currently has been ambulating although has some pain but that has improved since admission. His H&H remained relatively stable as I mentioned. He is otherwise medically stable for discharge home today. He will follow with his primary care doctor as well as Dr. Dhaliwal as an outpatient.
--- NOTE | 2016-08-23 07:58 | Patient Discharge Instructions ---
Discharge Instructions General Discharge Information Special Instructions: PLEASE FOLLOW UP WITH PCP AND VASCULAE UPON DISCHARGE Acute Coronary Syndrome Inclusion Criteria At DC or during hospital stay patient has or had the following: ACS DIAGNOSIS No Discharge Core Measures Meds if any: Prescribed or Continued at Discharge Meds if any: NOT Prescribed or Continued at Discharge Congestive Heart Failure Inclusion Criteria At DC or during hospital stay patient has or had the following: CHF DIAGNOSIS No Discharge Core Measures Meds if any: Prescribed or Continued at Discharge Meds if any: NOT Prescribed or Continued at Discharge Cerebrovascular accident Inclusion Criteria At DC or during hospital stay patient has or had the following: CVA/TIA Diagnosis No Discharge Core Measures Meds if any: Prescribed or Continued at Discharge Meds if any: NOT Prescribed or Continued at Discharge Venous thromboembolism Inclusion Criteria VTE Diagnosis No VTE Type NONE VTE Confirmed by (Test) NONE Discharge Core Measures - Per Current guidelines, there needs to be overlap - treatment for the first 5 days of Warfarin therapy. - If discharged on Warfarin prior to 5 days of - overlap therapy, the patient will need to be - assessed for post discharge needs including - *Post discharge parental anticoagulation - *Warfarin and/or parental anticoagulation education - *Follow up date to check INR post discharge At least 5 days overlap therapy as Inpatient No Meds if any: Prescribed or Continued at Discharge Note: Overlap Therapy is Warfarin and Anticoagulant Meds if any: NOT Prescribed or Continued at Discharge
[2016-08-23] MEDS ORDERED: FOLIC ACID1 M1 PO (09:13)
[2016-08-23] MEDS ORDERED: ONE DAILY MULT1 EAC2 PO (09:13)
[2016-08-23] MEDS ORDERED: VITAMIN B-1100 MG PO (09:27)
[2016-08-23 09:45] LABS: ABSOLUTE BASOPHIL COUNT 0 /CUMM (0.0-0.2); ABSOLUTE EOSINOPHIL COUNT 0.1 /CUMM (0.0-0.7); ABSOLUTE GRANULOCYTE CT 1.8 /CUMM (1.4-6.5); WHITE BLOOD CELL COUNT 2.8 /CUMM (4.8-10.8)
[2016-08-23 09:47] LABS: ABSOLUTE LYMPH COUNT 0.6 /CUMM (1.2-3.4); ABSOLUTE MONOCYTE COUNT 0.2 /CUMM (0.10-0.60); BASOPHIL % 0.4 % (0.0-2.0); EOSINOPHIL % 4.3 % (0-5); GRANULOCYTE % 66.4 % (42.2-75.2); HEMATOCRIT 29.2 % (42-52); MEAN CORPUSCULAR HGB 31.4 PG (27.0-31.0); MEAN PLATELET VOLUME 8.1 FL (7.4-10.4); RBC DISTRIBUTION WIDTH 17.7 % (11.5-14.5); RED BLOOD CELL CT 3.07 /CUMM (4.70-6.10)
[2016-08-23 10:33] LABS: PLATELET COUNT 212 /CUMM (130-400)
--- NOTE | 2016-08-23 12:18 | PN- Orthopedic ---
Subjective Subjective: Patient seen this morning. Resting complaint bed with no complaints of pain. Objective Vital Signs and I&Os Vital Signs Date Time Temp Pulse Resp B/P Pulse O2 O2 Flow FiO2 Ox Delivery Rate 08/23 0632 97.5 68 20 110/80 97 Room Air 08/23 0333 97.5 67 20 104/66 98 Room Air 08/23 0200 97.5 67 20 104/66 08/22 2231 98.1 68 20 98/52 99 Room Air 08/22 2000 98.7 71 18 124/70 08/22 1600 97.4 67 18 128/62 08/22 1432 98.4 79 20 128/82 100 Intake & Output 08/23 1600 08/23 0800 08/23 0000 08/22 1600 08/22 0800 08/22 0000 Intake Total 0 9935 611 1881 1256 Output Total 700 900 600 Balance -700 1210 400 200 656 Intake, IV 0 10 800 776 Intake, Oral 0 1200 400 300 480 Number 0 Bowel Movements Output, Urine 700 900 600 Patient 147 lb Weight Examination of her left lower extremity reveals no significant pain patient ambulate without too much pain. He still has swelling about the knee. The left lower extremity is grossly neurovascularly intact. The patient is actually seen ambulating with a bit of a stiff leg however nociceptive pain. Assessment/Plan Assessment/Plan Patient is stable orthopedically. He is to follow-up in the office in a couple weeks.
[2016-08-23 14:22] VITALS: BP 100/55
--- NOTE | 2016-08-30 17:13 | Discharge Summary ---
Visit Information Visit Dates Admission Date: 08/19/16 Discharge Date: 08/23/16 Hospital Course Course Attending Physician: CINDY HOUSE,VARUN Primary Care Physician: KESHA ROSARIO Hospital Course: 46/M with PMH of HTN, hx of traumatic brain injury with resulting seizure disorder [on phenytoin - last seizure many years ago] presents to ED after he was sent in by Dr. Scanlon after being found hypotensive. The patient was being evaluated for left leg pain. He states that he fell off a ladder and his leg was caught in it. This happened 5-6 weeks prior to admission. Previous CT showed skin thickening and edema in the soft tissues. He was also evalauted with a knee/tib/fib MRI which showed mild to moderate strain/contusion of the biceps femoris, gastrocnemius and peroneus longus. His pain is wax and wean between 10/10 and 2/10. Pain. Worse with walking. He denies any joints pain, swelling or erythema. He denies skin rash or any history of rheumatic disease. Denies any other muscular pain. In the ED he was found to be hypotensive, 62/35 with the remainder of his vitals stable. He was also found to be anemic with a hemoglobin of 5.6 and hematocrit 17.2. CTA ruled out PE or any acute pathology and lower extremity Doppler ruled out any venous thrombus. Per the ED staff, his compartment pressures were measured the orthopedic surgeon's office and the patient does not have compartment syndrome. He does have significant past history of tobacco abuse X2PPD and alcohol abuse X6pack of beer every 2-3 days. He works as a [employer]. He denies any known bleeding diathesis or family history of bleeding. Issue addressed during admission 1. Anemia without active bleeding most likely2/2 trauma 6 weeks ago. 6 weeks ago patient fell off a ladder and his leg was caught in it. He was sitting in by his orthopedic because of hypotension. He was found to be anemic with hemoglobin of 5, most likely traumatic in origin, part of it can be secondary to alcohol abuse. He was guiac negative in the emergency department, with no reports or complaints of hematemesis, hemoptysis, abdominal pain, bright red blood per rectum, melena or hematochezia. CTA of left LE result was 1- concerning for compartment syndrome, 2-No focal hematoma is seen, 3-No arterial injury, 4-No fracture identified. Based on the CTA vascular recommended no intervention and orthopedic assessment was this is not compartment and no intervention is needed. During admission patient received a total of 3 units of RBCs. His H&H is stable on the day of discharge. patient was advised to follow- up with his PCP and Dr. Scanlon post discharge. 2.Hypotension At admission patient was hypotensive, he responded well to fluid resuscitation with normal saline. He is hemodynamically stable since. 3.Seizure 2/2 TBI we continued phenytoin 100 in the am and 200mg in the pm 4.History of EtOH abuse Patient has a history of alcohol abuse in the past. Because of the fall urine toxicology was done and was negative except phenytoin that he takes for his seizure. we started his on multivitamin, thiamine and folate. He was placed on CIWA protocol. Allergies: Coded Allergies: aspirin (DIZZINESS 01/27/16) Uncoded Allergies: POLLEN (11/07/13) Disposition Summary Disposition Principal Diagnosis: Lower left extremity hematoma Additional Diagnosis: Alcohol detox Discharge Disposition: home or self care Discharge Instructions General Discharge Information Code Status: Full Code Patient's Diet: As tolerated Patient's Activity: Get some rest and move as tolerated Follow-Up Instructions/Appts: Please follow-up with your primary care doctor Please follow-up with Dr. Dhaliwal Medications at Discharge Discharge Medications: Continue taking these medications: Phenytoin Sodium Extended (Phenytoin Sodium Extended) 100 MG CAPSULE 1 Capsule ORAL DAILY Comments: Last Taken:08/23/16 Time:0830 AM Phenytoin Sodium Extended (Phenytoin Sodium Extended) 100 MG CAPSULE 2 Capsule ORAL Every night Comments: Last Taken:08/22/16 Time:9 PM Losartan Potassium (Losartan Potassium) 50 MG TABLET 1 Tablet ORAL DAILY Qty = 30 Instructions: We held the medication because of low BP restart after review by PCP that pressure is back to normal Comments: NOT GIVEN IN HOSPITAL Baclofen (Baclofen) 10 MG TABLET 1-2 Tablet ORAL THREE TIMES DAILY as needed for muscle strain Qty = 30 Comments: NOT GIVEN IN HOSPITAL Hydrocodone/Acetaminophen (Vicodin 5-300 MG Tablet) 5 MG-300 MG TABLET 1 Tablet ORAL EVERY 4-6 HOURS as needed for severe pain Qty = 30 Comments: NOT GIVEN IN HOSPITAL Start taking the following new medications: Folic Acid (Folic Acid) 1 MG TABLET 1 Milligram ORAL DAILY Days = 30 No Refills Comments: Last Taken:08/23/16 Time: 8:30 AM Multivitamin (One Daily Multivitamin) 1 EACH TABLET 1 Tablet ORAL DAILY Days = 30 No Refills Comments: Last Taken:08/23/16 Time:8:30 AM Thiamine HCl (Vitamin B-1) 100 MG TABLET 100 Milligram ORAL DAILY Days = 60 No Refills Comments: Last Taken:08/23/16 Time: 8:30 AM Copies To: KESHA ROSARIO MD,IVANNA Alvarez
== END 2016-08-23 17:12 | DRG 663 ==
LOC: ENRESERVTM → ENRESERVDT → ERH 14:16 → ERHI 19:55 → CRI 19:55 → ERH 19:55 → 2NA 19:55 → CRI 22:30 → 2NA 08-22 10:36
PROVIDERS: Emergency Medicine; Internal Medicine; Internal Medicine Cardiovascular Disease; Preventive Medicine Public Health & General Preventive Medicine; Student in an Organized Health Care Education/Training Program; ADMIT Student in an Organized Health Care Education/Training Program
PROC: 30233N1 Transfusion of Nonautologous Red Blood Cells into Peripheral Vein, Percutaneous Approach (ICD-10-PCS; principal; 2016-08-19)
DX: D62 Acute posthemorrhagic anemia (principal); I10 Essential (primary) hypertension; R56.9 Unspecified convulsions; F17.210 Nicotine dependence, cigarettes, uncomplicated; I95.9 Hypotension, unspecified; S06.9X0S Unspecified intracranial injury without loss of consciousness, sequela; X58.XXXS Exposure to other specified factors, sequela; S87.82XD Crushing injury of left lower leg, subsequent encounter; W11.XXXD Fall on and from ladder, subsequent encounter
CPT/HCPCS: 2NASP; CCU; 36415; 80307; 82436; 86920; 87040; 87070; 93005; 93010; 96361; 96365; 96366; 97116-GO; 97161-GP; 99291; J3490; P9016; Q9965

== ENCOUNTER 2017-01-01 01:08 | Emergency (ER) | payer OTHER ==
[~2017-01-01 01:08] MED LIST changes: +FOLIC ACID1 M1 PO; +ONE DAILY MULT1 EAC2 PO; +VITAMIN B-1100 MG PO
--- NOTE | 2017-01-01 01:37 | ED GENERAL ADULT ---
History of Present Illness General Chief Complaint: Allergy Symptoms Stated Complaint: ? ALLERGIC REACTION TO NEW MED BILAT ARM PAIN Source: patient, family, old records Exam Limitations: no limitations Vital Signs & Intake/Output Vital Signs & Intake/Output Vital Signs Date Time Temp Pulse Resp B/P B/P Pulse O2 O2 Flow FiO2 Mean Ox Delivery Rate 01/01 0322 98.9 93 18 130/79 98 Room Air 01/01 0128 98.5 97 18 100/56 98 Room Air Allergies Coded Allergies: aspirin (DIZZINESS 01/27/16) Uncoded Allergies: POLLEN (11/07/13) Reconcile Medications Baclofen 10 MG TABLET 1-2 TAB PO TID PRN muscle strain Cyclobenzaprine HCl 10 MG TABLET 1 TAB PO Q8P PAIN OR SPASM Folic Acid 1 MG TABLET 1 MG PO DAILY supplement Hydrocodone/Acetaminophen (Vicodin 5-300 MG Tablet) 5 MG-300 MG TABLET 1 TAB PO Q4-6 PRN severe pain Ibuprofen 600 MG TABLET 1 TAB PO TID PRN PAIN with food Losartan Potassium 50 MG TABLET 1 TAB PO DAILY HIGH BLOOD PRESSURE (Reported) We held the medication because of low BP restart after review by PCP that pressure is back to normal Multivitamin (One Daily Multivitamin) 1 EACH TABLET 1 TAB PO DAILY supplement Phenytoin Sodium Extended 100 MG CAPSULE 1 CAP PO DAILY SEIZURES (Reported) Phenytoin Sodium Extended 100 MG CAPSULE 2 CAP PO QPM SEIZURES (Reported) Thiamine HCl (Vitamin B-1) 100 MG TABLET 100 MG PO DAILY SUPPLEMENT Triage Note: TRIAGE: PATIENT TO ER FROM HOME REPORTING "HAVE AN INFECTION ON MY L FOOT/ LEG, SAW MY DOCTOR TODAY AND WAS PLACED ON SULFAMETHOXAZOLE-TMP DS 1 TAB PO Q12H, REPORTS TOOK 1 DOSE TONIGHT." REPORTING S/P TAKING MEDICATION, BEGAN HAVING 10/10 BILATERAL UPPER EXT AND R LEG PAIN. DENIES ANY ITCHING/ RASH/ SOB. PATIENT SPOUSE REQUESTING EVAL OF PATIENT L LOWER EXT INFECTION, "I THINK HE HAS STAPH OR SOMETHING." Triage Nurses Notes Reviewed? yes HPI: Patient saw his doctor earlier today because of rash on his left foot. Rash is painful. His doctor was concerned about MRSA so he was started on Bactrim. Patient took 1 dose this evening. 3 hours later he began having 10 out of 10 and spasm pain in both arms. The spasms have been migrating and are now down both legs as well. The pain is 10 out of 10 and is constant. There are no aggravating or mitigating factors. There is no difficulty breathing or difficulty swallowing. THERE ARE NO FEVERS or chills. Patient is concerned that he is having an allergic reaction. Past History Travel History Traveled to [place] past 21 day No Medical History Any Pertinent Medical History? 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 No Review of Systems Review of Systems Constitutional: Reports: no symptoms. EENTM: Reports: no symptoms. Respiratory: Reports: no symptoms. Cardiovascular: Reports: no symptoms. GI: Reports: no symptoms. Genitourinary: Reports: no symptoms. Musculoskeletal: Reports: see HPI, muscle pain. Skin: Reports: no symptoms. Neurological/Psychological: Reports: no symptoms. Hematologic/Endocrine: Reports: no symptoms. Immunologic/Allergic: Reports: no symptoms. All Other Systems: Reviewed and Negative Physical Exam Physical Exam General Appearance: well developed/nourished, alert, awake, anxious, moderate distress Head: atraumatic, normal appearance Eyes: Bilateral: PERRL, EOMI. Ears, Nose, Throat: normal pharynx, normal ENT inspection, hearing grossly normal Neck: normal inspection, supple, full range of motion Respiratory: normal breath sounds, chest non-tender, no respiratory distress, lungs clear Cardiovascular: regular rate/rhythm, normal peripheral pulses Gastrointestinal: normal bowel sounds, soft, non-tender, no organomegaly Back: normal inspection, normal range of motion Extremities: normal inspection, normal capillary refill, normal range of motion, no edema, NO TENDERNESS TO PALP Neurologic/Psych: no motor/sensory deficits, awake, alert, oriented x 3, normal gait, normal mood/affect Skin: intact, normal color, warm/dry Lymphatic: no anterior cervical anna Core Measures ACS in differential dx? No CVA/TIA Diagnosis: No Severe Sepsis Present: No Septic Shock Present: No Progress Differential Diagnoses I considered the following diagnoses in my evaluation of the patient: [ Medication side effects, muscle spasms] Plan of Care: Orders Procedure Date/time Status Add-on Test (ER Only) 01/01 030 Active DILANTIN 01/01 015 Complete ETHANOL 01/02 136 Complete COMPREHENSIVE METABOLIC PANEL 01/02 136 Complete CBC WITHOUT DIFFERENTIAL 01/02 136 Complete Current Medications Sig/Madie Start time Last Medication Dose Stop Time Status Admin Cyclobenzaprine HCl 10 MG ONCE ONE 01/02 400 UNVr 01/01 (Flexeril 10MG Tab) 01/01 401 035 Ibuprofen 600 MG ONCE ONE 01/02 400 UNVr 01/01 (Motrin) 01/01 401 035 Sodium Chloride 1,000 ML BOLUS ONE 01/01 315 AC 01/01 (Normal Saline 0.9%) 01/01 041 0305 Laboratory Tests 01/01/17 0155: Anion Gap 13, Estimated GFR > 60, BUN/Creatinine Ratio 12.5, Glucose 88, Calcium 9.4, Total Bilirubin 0.4, AST 25, ALT 30, Alkaline Phosphatase 77, Total Protein 6.6, Albumin 4.0, Globulin 2.6, Albumin/Globulin Ratio 1.5, CBC w Diff MAN DIFF ORDERED, RBC 4.06 L, MCV 99.9 H, MCH 33.7 H, RDW 15.8 H, MPV 7.6, Gran % 87.1 H, Lymphocytes % 6.7 L, Monocytes % 3.3, Eosinophils % 2.6, Basophils % 0.3, Absolute Granulocytes 3.9, Segmented Neutrophils 87 H, Absolute Lymphocytes 0.3 L, Lymphocytes 7 L, Monocytes 1 L, Absolute Monocytes 0.1 L, Eosinophils 5, Absolute Eosinophils 0.1, Absolute Basophils 0, Platelet Estimate ADEQUATE, Polychromasia 1+, Ovalocytes FEW, PUBS MCHC 33.7, Fld Total RBCs Counted 100, Phenytoin 5.7 L, Serum Alcohol 41.0 Initial ED EKG: none Comments: Patient is very upset that there is no diagnosis for his muscle pain. Departure Departure Disposition: HOME OR SELF CARE Condition: Stable Clinical Impression Primary Impression: Muscle pain Referrals: KESHA ROSARIO (PCP/Family) Additional Instructions: RETURN NEEDED Departure Forms: Customer Survey General Discharge Information Prescriptions: Current Visit Scripts Cyclobenzaprine HCl 1 TAB PO Q8P #20 TAB Ibuprofen 1 TAB PO TID PRN PAIN #20 TAB with food Critical Care Note Critical Care Note Critical Care Time: non-applicable
[2017-01-01 02:03] LABS: ABSOLUTE BASOPHIL COUNT 0 /CUMM (0.0-0.2); ABSOLUTE EOSINOPHIL COUNT 0.1 /CUMM (0.0-0.7); ABSOLUTE GRANULOCYTE CT 3.9 /CUMM (1.4-6.5); ABSOLUTE LYMPH COUNT 0.3 /CUMM (1.2-3.4); ABSOLUTE MONOCYTE COUNT 0.1 /CUMM (0.10-0.60); BASOPHIL % 0.3 % (0.0-2.0); EOSINOPHIL % 2.6 % (0-5); GRANULOCYTE % 87.1 % (42.2-75.2); HEMATOCRIT 40.6 % (42-52); MEAN CORPUSCULAR HGB 33.7 PG (27.0-31.0); MEAN CORPUSCULAR HGB CONC 33.7 G/DL (33.0-37.0); MEAN CORPUSCULAR VOLUME 99.9 FL (80.0-94.0); MEAN PLATELET VOLUME 7.6 FL (7.4-10.4); PLATELET COUNT 155 /CUMM (130-400); RBC DISTRIBUTION WIDTH 15.8 % (11.5-14.5); RED BLOOD CELL CT 4.06 /CUMM (4.70-6.10); WHITE BLOOD CELL COUNT 4.5 /CUMM (4.8-10.8)
[2017-01-01 03:22] VITALS: BP 130/79
[2017-01-01] MEDS ORDERED: IBUPROFEN600 M1 PO (04:08)
[2017-01-01] MEDS ORDERED: CYCLOBENZAPRINE10 M1 PO (04:08)
== END 2017-01-01 04:17 ==
LOC: ERH 01:08
PROVIDERS: Emergency Medicine
DX: M79.1 Myalgia (principal)
CPT/HCPCS: G0480